=== PATIENT | female | born 1950 | race Caucasian/White ===

== ENCOUNTER 2018-12-05 19:26 | Emergency (ER) | payer MEDICARE, OTHER, SELFPAY ==
[2018-12-05 19:27] VITALS: BP 190/90; PULSE 77; RESP 17; TEMP 36.4; O2SAT 98; BMI 23.7
--- NOTE | 2018-12-05 19:43 | EKG12_ITS ---
Test Reason : LEFT SHOULDER PAIN Blood Pressure : / mmHG Vent. Rate : 075 BPM Atrial Rate : 075 BPM P-R Int : 158 ms QRS Dur : 102 ms QT Int : 424 ms P-R-T Axes : 078 -08 042 degrees QTc Int : 473 ms Normal sinus rhythm Inferior infarct , age undetermined Abnormal ECG Confirmed by GA GENAO, ALYX ([id number]), editorial cartoonist DESTINY GOLDSTEIN ([id number]) on 12/07/2018 3:46:03 PM Referred By: AME LYA Confirmed By:ALYX KOROMA MD
[2018-12-05] MEDS: Aspirin 81 MG TAB.CHEW 324 MG PO (20:00)
--- NOTE | 2018-12-05 20:00 | RAD_ITS ---
STUDY: X-RAY CHEST REASON FOR EXAM: Female, 67 years old. Left shoulder pain radiating into back and flank. TECHNIQUE: Single AP portable view of the chest. COMPARISON: None. FINDINGS: The lungs are clear and expanded. There is no demonstrated pleural abnormality. Normal size heart. There is evidence of retrocardiac hiatal hernia. Otherwise normal mediastinum and michaela. Normal visualized pulmonary arteries. There is atherosclerotic calcification of the aortic arch with tortuosity. Normal visualized thoracic spine. Normal visualized ribs, clavicles, and shoulders. There is no demonstrated abnormality of the visualized soft tissue structures of the upper abdomen. RAD/Chest 1 View (Portable) IMPRESSION: 1. Retrocardiac hiatal hernia. 2. No acute cardiopulmonary disease. Electronically Signed: Suresh Costello DO at 20:28 EST Tel [phone], Service support ,
[2018-12-05 20:29] LABS: D-Dimer Quantitative (DVT/PE) 1.16 FEU/ug/m (0.27-0.49)
[2018-12-05 20:32] LABS: Basophil# 0.05 X10^3/uL; Mean Corpuscular Hgb 30.6 pg (27.0-32.0); RBC Distribution Width CV 12.8 % (11.6-14.6)
[2018-12-05 20:34] LABS: Anion Gap 6 (5-15); BUN 21 mg/dL (7-18); BUN/Creat Ratio 19.8 RATIO (10-20); Calcium,Total 9.1 mg/dL (8.5-10.1); Chloride 107 mmol/L (98-107); Creatinine, Serum 1.06 mg/dL (0.55-1.02); EST Glomerular Filtration Rate 55 mL/min (>60); Est Glom Filt Rate - Afr Amer 67 mL/min (>60); Estimated Creatinine Clearance 43.77 ml/min; Glucose 107 mg/dL (74-106); Sodium Level 141 mmol/L (136-145)
--- NOTE | 2018-12-05 20:40 | ED.RN ---
LAB CALLS WITH CRITICAL RESULT, D-DIMER 1.16, DR. MCCLOUD MADE AWARE.
[2018-12-05 20:42] LABS: Hematocrit 41.1 % (37-47); Hemoglobin 13.6 g/dl (12.0-15.0); Mean Corp Hgb Conc 33.1 g/gl (32-36); Mean Corpuscular Volume 92.6 fL (81-99); Mean Platelet Vol. 10.6 fl (6.2-12.0); POSITIVE COUNT NO; POSITIVE DIFFERENTIAL NO; POSITIVE MORPHOLOGY NO; Platelet Count 237 K/mm3 (150-450); RBC Distribution Width SD 42.9 fl (35.1-43.9); Red Blood Count 4.44 M/mm3 (4.2-5.4); White Blood Count 5.5 K/mm3 (4.4-11.0)
[2018-12-05 20:43] LABS: Absolute Lymphocyte Count 1.41 X10^3/ul (0.83-4.51); Basophil% 0.9 % (0-1); Eosinophil# 0.26 X10^3/uL; Eosinophils% 4.7 % (0-5); Lymphocyte # 1.41 X10^3/ul (4.0); Lymphocyte % 25.5 % (19-41); Monocyte% 14.5 % (0-10); Neutrophil # 3.01 X10^3/uL (2.7-7.7); Neutrophil % 54.4 % (47-70)
[2018-12-05 20:44] VITALS: BP 164/90; PULSE 66
--- NOTE | 2018-12-05 20:56 | CT_ITS ---
STUDY: CTA CHEST REASON FOR EXAM: Female, 67 years old. Pain left shoulder, [place] with heart stents RADIATION DOSAGE (If Supplied By Facility): CTDIvol = ( 5.50 ) mGy, DLP = ( 243.46 ) mGycm TECHNIQUE: The examination was performed with the intravenous administration of 75ML ml of Isovue 370 contrast material. Post-processing of the angiographic images was performed, with multiplanar reformation and 3D reconstruction. Individualized dose optimization techniques were used for this CT. COMPARISON: Chest x-ray from today FINDINGS: Normal enhancement of the main pulmonary artery and right and left pulmonary arteries. Normal enhancement of the bilateral peripheral pulmonary arteries. There is no demonstrated pulmonary embolism. Normal thoracic aorta and visualized great vessels. There is no demonstrated aortic dissection. Normal heart and pericardium. Calcific coronary artery disease. Normal mediastinum. Normal hilar regions. Normal visualized trachea and bronchi. The lungs are well expanded. Normal pulmonary parenchyma. Normal pleura. Normal chest wall structures. Normal osseous structures. Large hiatal hernia. CT/CTA Chest W/WO Contrast IMPRESSION: Large hiatal hernia. Coronary artery disease. Electronically Signed: Villa Benoit MD at 21:55 EST , Service support ,
[2018-12-05] MEDS: 0.9% Normal Saline 1,000 ML 150 ML IV (20:58)
[2018-12-05 21:26] VITALS: BP 155/79; PULSE 74; RESP 13; O2SAT 97
--- NOTE | 2018-12-05 22:39 | ED.VISSUMM ---
- ER Visit Summary Date of Service: 12/05/18 Chief Complaint: Left shoulder pain [] History of Present Illness: The patient is a 67 F [presents the emergency department complaint of pain over her left scapula. Patient has had discomfort there since yesterday. Patient states the pain is dull and achy. She denies any trauma. She was concerned that it could be heart related given her cardiac history. Patient however states that the pain is actually improved with activity. Patient states that if she lies on her left arm and the left side of her back the pain goes away and she is able to sleep all night. She states that when she flexes her neck she feels a pulling in her left scapula area. Patient denies any exertional dyspnea. She denies any diaphoresis. She denies any anterior chest pain. Patient denies nausea or vomiting. Patient does have a history of cardiac stents x2. Patient has a abdominal aortic aneurysm that is being monitored and is at 4.3 cm currently. Patient just recently had an evaluation for this. Patient does have a history of hypertension, high cholesterol, and coronary artery disease.] Patient denies recent travel or surgery. Physical Examination: [HEENT-PERRLA, EOMI. Cranial nerves II through XII grossly intact. TMs clear. Mucous membranes moist. No adenopathy. Cardiovascular-regular rate and rhythm without murmur or ectopy Lungs-clear to auscultation, chest wall stable without crepitus or subcu emphysema Abdomen-normoactive bowel sounds, soft, nontender, no rebound or rigidity, no peritoneal signs. Back exam-I am unable to reproduce patient's pain with palpation of the back. There is no erythema or warmth noted to her back. No bony tenderness. Extremities-intact ?4, normal range of motion, normal pulses, atraumatic] Test Results: EKG obtained arrival shows sinus rhythm with a ventricular rate of 75 bpm with old inferior infarct noted. When compared with prior EKG from 2014 no new changes noted. CBC with differential obtained showed a white blood cell count of 5.5, hemoglobin 13.6, hematocrit 41, platelets 237. Chemistries unremarkable. Troponin less than 0.015. D-dimer was elevated 1.16. Chest x-ray showed a hiatal hernia otherwise nothing acute. CTA of the chest obtained showed no evidence for PE or dissection. Patient had a large hiatal hernia and evidence of coronary artery disease. Emergency Department Course and Treatment: [Initially patient was given aspirin and sublingual nitro which did not improve her pain at all.] Treatment Plan: [Had a long discussion with patient that I felt her pain was atypical to be cardiac based on her description and history. She understands that I cannot completely rule out cardiac etiology although my suspicion is low. We discussed admission for stress testing versus outpatient follow-up and she would prefer to follow-up which I feel is reasonable at this time.] Disposition: [Discharged home in stable condition. Patient advised to return if chest pain, shortness of breath, exertional dyspnea, or condition should worsen anyway.] Impression: [Back pain-etiology uncertain] This note was generated with [employer] dictation software. It may contain incorrect words, spelling, and punctuation that were not noted in review of the chart prior to signing ED Disposition - Plan for ED Patient: Chief Complaint: Upper Extremity Injury Referrals: Fabrizio Callahan MD [Primary Care Provider] -
--- NOTE | 2018-12-05 22:43 | ED.DCSUM_ITS ---
- ER Visit Summary Date of Service: 12/05/18 Chief Complaint: Left shoulder pain [] History of Present Illness: The patient is a 67 F [presents the emergency department complaint of pain over her left scapula. Patient has had discomfort there since yesterday. Patient states the pain is dull and achy. She denies any trauma. She was concerned that it could be heart related given her cardiac history. Patient however states that the pain is actually improved with activity. Patient states that if she lies on her left arm and the left side of her back the pain goes away and she is able to sleep all night. She states that when she flexes her neck she feels a pulling in her left scapula area. Patient denies any exertional dyspnea. She denies any diaphoresis. She denies any anterior chest pain. Patient denies nausea or vomiting. Patient does have a history of cardiac stents x2. Patient has a abdominal aortic aneurysm that is being monitored and is at 4.3 cm currently. Patient just recently had an evaluation for this. Patient does have a history of hypertension, high cholesterol, and coronary artery disease.] Patient denies recent travel or surgery. Physical Examination: [HEENT-PERRLA, EOMI. Cranial nerves II through XII grossly intact. TMs clear. Mucous membranes moist. No adenopathy. Cardiovascular-regular rate and rhythm without murmur or ectopy Lungs-clear to auscultation, chest wall stable without crepitus or subcu emphysema Abdomen-normoactive bowel sounds, soft, nontender, no rebound or rigidity, no peritoneal signs. Back exam-I am unable to reproduce patient's pain with palpation of the back. There is no erythema or warmth noted to her back. No bony tenderness. Extremities-intact ?4, normal range of motion, normal pulses, atraumatic] Test Results: EKG obtained arrival shows sinus rhythm with a ventricular rate of 75 bpm with old inferior infarct noted. When compared with prior EKG from 2014 no new changes noted. CBC with differential obtained showed a white blood cell count of 5.5, hemoglobin 13.6, hematocrit 41, platelets 237. Chemistries unremarkable. Troponin less than 0.015. D-dimer was elevated 1.16. Chest x- ray showed a hiatal hernia otherwise nothing acute. CTA of the chest obtained showed no evidence for PE or dissection. Patient had a large hiatal hernia and evidence of coronary artery disease. Emergency Department Course and Treatment: [Initially patient was given aspirin and sublingual nitro which did not improve her pain at all.] Treatment Plan: [Had a long discussion with patient that I felt her pain was at ypical to be cardiac based on her description and history. She understands that I cannot completely rule out cardiac etiology although my suspicion is low. We discussed admission for stress testing versus outpatient follow-up and she would prefer to follow-up which I feel is reasonable at this time.] Disposition: [Discharged home in stable condition. Patient advised to return if chest pain, shortness of breath, exertional dyspnea, or condition should worsen anyway.] Impression: [Back pain-etiology uncertain] This note was generated with [employer] dictation software. It may contain incorrect words, spelling, and punctuation that were not noted in review of the chart prior to signing ED Disposition - Plan for ED Patient: Chief Complaint: Upper Extremity Injury Referrals: Fabrizio Callahan MD [Primary Care Provider] -
--- NOTE | 2018-12-05 22:44 | DCINST.ED_ITS ---
ED Disposition - Plan for ED Patient: Chief Complaint: Upper Extremity Injury Instructions: ED Spasm Back No Trauma, ED Neck Back Pain General Prescriptions: Hydrocodone Bitart/Apap 5-325 [[place] 5MG-325MG] 1 tab PO Q4H PRN PRN 2 Days #10 tab PRN Reason: Pain Referrals: Fabrizio Callahan MD [Primary Care Provider] - 3-5 Days
[2018-12-05 22:53] VITALS: BP 147/88; PULSE 69; RESP 16; O2SAT 97
== END 2018-12-05 23:02 | disposition home or self-care (01) ==
LOC: ED 19:52
PROVIDERS: Emergency Provider Emergency Medicine; Family Provider Family Medicine; PCP Family Medicine
DX: M54.9 Dorsalgia, unspecified (principal); K44.9 Diaphragmatic hernia without obstruction or gangrene; I25.10 Atherosclerotic heart disease of native coronary artery without angina pectoris; I10 Essential (primary) hypertension; E78.00 Pure hypercholesterolemia, unspecified; I71.4 Abdominal aortic aneurysm, without rupture
CPT/HCPCS: 71045; 71275; 80048; 84484; 85025; 85379; 93005; 96360; 96361; 99285; J7030; Q9967; A4216

== ENCOUNTER 2018-12-28 17:13 | Inpatient (IN) | payer MEDICARE, OTHER, SELFPAY ==
[2018-12-28] VITALS (7 sets, daily range): BP systolic 158–165; BP diastolic 82–90; PULSE 68–80; RESP 14–18; TEMP 36.6–36.7; O2SAT 97–99; BMI 23.7; BMI 22.8
--- NOTE | 2018-12-28 17:17 | EKG12_ITS ---
Test Reason : PALPATIONS Blood Pressure : / mmHG Vent. Rate : 075 BPM Atrial Rate : 075 BPM P-R Int : 152 ms QRS Dur : 102 ms QT Int : 412 ms P-R-T Axes : 073 -10 046 degrees QTc Int : 460 ms Normal sinus rhythm Inferior-posterior infarct , age undetermined Abnormal ECG Confirmed by SEAN GENAO, VIOLA ([id number]), supervising editor trailer DESTINY GOLDSTEIN ([id number]) on 01/01/2019 11:14:23 AM Referred By: Confirmed By:VIOLA ESTRADA MD
--- NOTE | 2018-12-28 17:20 | RAD_ITS ---
STUDY: X-RAY CHEST REASON FOR EXAM: Female, 68 years old. Chest pain TECHNIQUE: 1 view COMPARISON: Prior chest radiograph of December 05, 2018 FINDINGS: The lungs are clear and expanded. There is no demonstrated pleural abnormality. Normal size heart. Air-containing hiatal hernia. Normal visualized pulmonary arteries. There is atherosclerotic calcification of the aortic arch with tortuosity. Normal visualized thoracic spine. Normal visualized ribs, clavicles, and shoulders. There is no demonstrated abnormality of the visualized soft tissue structures of the upper abdomen. RAD/Chest 1 View (Portable) IMPRESSION: No acute cardiopulmonary findings or changes. Negative for major consolidation, focal atelectasis, cardiomegaly or substantial pleural effusion. Hiatal hernia. Electronically Signed: Heather Pratt MD at 18:28 EST , Service support ,
[2018-12-28 17:52] LABS: Absolute Lymphocyte Count 1.07 X10^3/ul (0.83-4.51); Absolute Neutrophil Count 3.3 X10^3/uL (2.0-7.7); Basophil# 0.06 X10^3/uL; Basophil% 1.1 % (0-1); Eosinophil# 0.19 X10^3/uL; Eosinophils% 3.6 % (0-5); Hematocrit 40.7 % (37-47); Hemoglobin 13.3 g/dl (12.0-15.0); Lymphocyte # 1.07 X10^3/ul (4.0); Lymphocyte % 20.3 % (19-41); Mean Corp Hgb Conc 32.7 g/gl (32-36); Mean Corpuscular Hgb 30.4 pg (27.0-32.0); Mean Corpuscular Volume 92.9 fL (81-99); Mean Platelet Vol. 9.5 fl (6.2-12.0); Monocyte# 0.68 X10^3/uL; Monocyte% 12.9 % (0-10); Neutrophil # 3.26 X10^3/uL (2.7-7.7); Neutrophil % 62.1 % (47-70); Platelet Count 204 K/mm3 (150-450); RBC Distribution Width CV 12.5 % (11.6-14.6); RBC Distribution Width SD 41.4 fl (35.1-43.9); Red Blood Count 4.38 M/mm3 (4.2-5.4); White Blood Count 5.3 K/mm3 (4.4-11.0)
[2018-12-28 17:54] LABS: POSITIVE COUNT NO; POSITIVE DIFFERENTIAL NO; POSITIVE MORPHOLOGY NO
--- NOTE | 2018-12-28 18:19 | ED.VISSUMM ---
- ER Visit Summary Date of Service: 12/28/18 Chief Complaint: Palpitations History of Present Illness: The patient is a 68 F reports sent by contract implementation analyst office Dr. Larose for abnormal Holter monitor today. Reports been having palpitations on and off since her NE in 2007 has had 2 stents then. Patient on verapamil 120 mg daily for hypertension. No cardiac dysrhythmia history. Saw cardiology yesterday in the office is a 48-hour Holter monitor. States around noon today noted 10 seconds of palpitations. No lightheaded symptoms. Call cardiology office, reported to go to the ED with abnormal findings. I did discuss with nursing who called prior to patient arrival. Patient denies any symptoms since. Physical Examination: General: Alert and oriented ?3, no acute distress HEENT: Normocephalic, atraumatic. Moist mucosa membranes Neck: supple, nontender. Cardiovascular: Regular rate and rhythm, no murmurs Respiratory: Normal breath sounds, symmetric, no distress Abdomen: Soft, nontender, nondistended Extremities: Nontender, no edema, pulses intact ?4 Neuro: no focal neurological deficits. Test Results: EKG sinus rate of [address] changes. T wave inversion in leads III. Electrolytes troponin negative. Chest x-ray negative. Emergency Department Course and Treatment: Evaluation of faxed in records from cardiology office with Holter monitor noted nonsustained V. tach at 11:36 lasting less than 4 seconds. Labs stable EKG stable except T wave inversion leads III. I spoke with Dr. Larose her contract implementation analyst reports in the office she had T wave inversions in the lateral leads on EKG today. She did not have any exertional angina symptoms therefore they elected with a Holter monitor. States now with a nonsustained V. tach he states stress test would not be the best option and would like her to be catheterized. I spoke with covering contract implementation analyst Dr. Quiles, updated on findings and presentation he states he will consult and see the patient prior to making decisions. Discussed with hospitalist Dr. Guido who agrees to admit to PCU for further management. Treatment Plan: [] Disposition: Admission Impression: 1. Nonsustained V. tach 2. Palpitations This note was generated with [employer] dictation software. It may contain incorrect words, spelling, and punctuation that were not noted in review of the chart prior to signing ED Disposition - Plan for ED Patient: Disposition: Acute Care Hospital [facility] Diagnosis: Nonsustained ventricular tachycardia, Palpitations Referrals: Fabrizio Callahan MD [Primary Care Provider] -
[2018-12-28 18:24] LABS: Anion Gap 6 (5-15); BUN 17 mg/dL (7-18); Calcium,Total 9.4 mg/dL (8.5-10.1); Chloride 107 mmol/L (98-107); Creatinine, Serum 0.94 mg/dL (0.55-1.02); EST Glomerular Filtration Rate 63 mL/min (>60); Est Glom Filt Rate - Afr Amer 76 mL/min (>60); Glucose 99 mg/dL (74-106); Potassium 4.4 mmol/L (3.5-5.1); Sodium Level 141 mmol/L (136-145)
--- NOTE | 2018-12-28 19:27 | PCM.HP.STD ---
Problem List (1) Nonsustained ventricular tachycardia Status: Acute (2) Palpitations Status: Chronic History of Present Illness Date of Admission: 12/28/18 Chief Complaint: palpitations The patient is a 68 year old F with a significant history of hypertension, Abdominal Aortic Aneurysm; MS status post stents; and hyperlipidemia who presented with persistent palpitations that started about 4 days ago. Associated with her symptoms is lightheadedness. After her MS in 2007 patient's had chronic palpitations and lightheadedness. However in the last 4 days the above symptoms has worsened. She went to her cattle producers, Dr. Yun, a day before this presentation and she was given an event monitor. On the day of admission she had palpitations and the event monitor captured 4 seconds of nonsustained V. tach. Her cattle producers office sent patient to the ED for for further evaluation. Emergency department doctor discussed the case with Dr. Yun who recommended heart cath. Emergency department doctor discussed the case with Dr. Quiles, [employer] who will see the patient in the AM. Her event monitor was scheduled to come off a day after this admission. Patient denies any chest pain or shortness of breath. At the outpatient cattle producers office, a day before her admission, EKG showed T wave inversion in the lateral leads. However at emergency department on the day of presentation her EKG showed T wave inversion in leads III. Past Medical History Past Medical History (Chronic Problems): Chronic Problems (Last Updated 12/28/18 @ 20:09 by Joseph Guido MD) Palpitations (Chronic) Medical History: Medical History (Last Updated 12/28/18 @ 20:09 by Joseph Guido MD) Coronary artery disease I25.10 Hyperlipidemia E78.5 Allergies erythromycin base [From Staticin] Allergy (Verified 12/28/18 17:16) Other ethyl alcohol [From Staticin] Allergy (Verified 12/28/18 17:16) Other Sulfa (Sulfonamide Antibiotics) Allergy (Verified 12/28/18 17:16) Other Home Medications: Ambulatory Orders Medication Instructions Recorded Aspirin [Aspirin, Baby] 81 mg PO DAILY 02/26/14 Rosuvastatin Calcium [Crestor] 10 mg PO QHS 02/26/14 Verapamil HCl [Verapamil ER] 120 mg PO DAILY 02/26/14 [place]-3 Fatty Acids/Fish Oil [Fish 1 each PO DAILY 12/28/18 Oil 1,000 mg Capsule] Surgical History: - - Coronary stents Lives: Spouse/ Significant Other Smoking Status: Never smoker Alcohol: None - *Family History Maternal History Items: Diabetes, Heart Disease Paternal History Items: - - Aortic Aneursym Review of Systems Constitutional: Denies: Chills, Fever, Weight Change HEENT: Denies: Head Aches, Sinus Congestion, Sinus Drainage Cardiovascular: Reports: Light Headedness, Palpitations. Denies: Chest Pain Respiratory: Denies: Cough, Shortness of breath at rest, Sputum production Gastrointestinal: Denies: Abdominal Pain, Nausea, Vomiting Genitourinary: Denies: Dysuria Musculoskeletal: Denies: Joint Pain, Joint Tenderness Skin: Denies: Rash, Wounds Neurological: Denies: Numbness, Tingling, Focal weakness Psychiatric: Denies: Anxiety, Depression, Homicidal Ideations, Suicidal Ideations Hematologic/ Lymphatic: Denies: Easy Bruising, Easy Bleeding VTE Information - Inpt Only VTE Present on Admission: No VTE Mechan Device Prophylaxis: None VTE Pharm Prophylaxis ordered?: Yes Patient Problems: Active and Suspected Problems (Last Updated 12/28/18 @ 20:09 by Joseph Guido MD) Nonsustained ventricular tachycardia (Acute) - Physical Exam General: Alert, Oriented x3, Cooperative HEENT: Atraumatic, PERRLA, EOMI, Normocephalic Neck: Supple, No JVD, Negative Carotid Bruits Lungs: Clear to auscultation, Normal air movement Cardiovascular: Regular rate, No murmurs Abdomen: Bowel Sounds Present, Soft, Non Tender Extremities: No edema, Capillary Refill Less than 3 Seconds Skin: No rashes, No breakdown Musculoskeletal: No Tenderness to Palpation of Joints or Extremities Neurological: Neuro grossly intact Psych/Mental Status: Normal Affect, Appropriate Vital Signs Temp Pulse Resp BP Pulse Ox 98 F 72 18 165/82 H 99 12/28/18 17:13 12/28/18 18:04 12/28/18 18:04 12/28/18 18:04 12/28/18 18:04 Oxygen Delivery Method Room Air Weight: 60.781 kg Body Mass Index (BMI) 23.7 Laboratory Tests Past 24 Hrs 12/28/18 12/28/18 17:30 17:30 WBC 5.3 RBC 4.38 Hgb 13.3 Hct 40.7 MCV 92.9 MCH 30.4 MCHC 32.7 RDW 12.5 RDW Differential 41.4 Plt Count 204 MPV 9.5 Immature Gran % (Auto) 0.000 Neut % (Auto) 62.1 Lymph % (Auto) 20.3 [place] % (Auto) 12.9 H Eos % (Auto) 3.6 Baso % (Auto) 1.1 H Absolute Neuts (auto) 3.3 Absolute Lymphs (auto) 1.07 Total Counted Not Reportable Sodium 141 Potassium 4.4 Chloride 107 Carbon Dioxide 28.0 Anion Gap 6 BUN 17 Creatinine 0.94 Estim Creat Clear Calc 48.70 Est GFR (MDRD) Af Amer 76 Est GFR (MDRD) Non-Af 63 BUN/Creatinine Ratio 18.0 Glucose 99 Calcium 9.4 Troponin I < 0.015 Assessment/Plan All Active Problems (Last Updated 12/28/18 @ 20:09 by Joseph Guido MD) Nonsustained ventricular tachycardia (Acute) The patient is a 68 year old F with a significant history of hypertension, Abdominal Aortic Aneurysm; MS status post stents; and hyperlipidemia who developed palpitations after MS in 2007, now with persistent unbearable palpitations and found to have nonsustained V. tach captured on an event monitor. Dysrhythmia Patient with unbearable palpitations and nonsustained V. tach captured on event monitor. Continue home verapamil. As needed labetalol for systolic blood pressure more than 160 that could also help with dysrhythmia. Independent review of EKG showed T wave inversion in leads III. Independent review of event monitor shows that on the day of admission patient had a nonsustained V. tach at 11:38 AM. Review of labs showed normal electrolytes. Will order magnesium level. Trend cardiac enzymes. Cardiology consult. Will keep npo pending cardiology seeing patient. PT/INR ordered. Hypertension On presentation his blood pressure was not within goal. Continue verapamil Trend blood pressures and adjust blood pressure medications PRN labetalol. Hyperlipidemia Statin continued Abdominal aortic aneurysm Continue outpatient longitudinal follow-up. DVT prophylaxis: Subcutaneous heparin. Code Visit OBSV E&M: [id number] Initial observation care L3
[2018-12-29] VITALS (11 sets, daily range): BP systolic 133–149; BP diastolic 79–85; PULSE 66–96; RESP 14–18; TEMP 36.6–37; O2SAT 93–98
[2018-12-29 04:30] LABS: Bacteria 0 SEEN /hpf (None Seen); Mucous, Urine 0 SEEN /hpf (<or=2+); Red Blood Cells-Urine 0 SEEN /hpf (0-5); White Blood Cells 0 SEEN /hpf (0-5)
[2018-12-29 05:34] LABS: Color, Urine Straw (Yellow); Glucose, Dipstick Normal (Normal); Ketone-Dipstick Negative (Negative); Leukocyte Esterase-Dipstick Negative /ul (Negative); Nitrite-Dipstick Negative (Negative); Occult Blood-Urine 25 /ul (Negative); Protein-Dipstick Negative (Negative); Urine Bilirubin Dipstick Negative (Negative); Urine Clarity Clear (Clear); Urine Urobilinogen Normal (Normal)
[2018-12-29 05:41] LABS: Squamous Epithelial Cells - UA 0-5 SEEN /hpf (5-10)
--- NOTE | 2018-12-29 05:55 | EKG12_ITS ---
Test Reason : AM Blood Pressure : / mmHG Vent. Rate : 067 BPM Atrial Rate : 067 BPM P-R Int : 164 ms QRS Dur : 100 ms QT Int : 424 ms P-R-T Axes : 071 -07 074 degrees QTc Int : 448 ms Normal sinus rhythm Inferior-posterior infarct , age undetermined Abnormal ECG When compared with ECG of 28-DEC-2018 17:07, MANUAL COMPARISON REQUIRED, DATA IS UNCONFIRMED Confirmed by SEAN GENAO, VIOLA ([id number]), desk editor DESTINY GOLDSTEIN ([id number]) on 01/04/2019 11:49:01 AM Referred By: BRIAN Confirmed By:VIOLA ESTRADA MD
[2018-12-29 06:54] LABS: Absolute Lymphocyte Count 1.18 X10^3/ul (0.83-4.51); Basophil# 0.08 X10^3/uL; Basophil% 1.6 % (0-1); Hematocrit 39.8 % (37-47); Hemoglobin 13.3 g/dl (12.0-15.0); Lymphocyte # 1.18 X10^3/ul (4.0); Lymphocyte % 23.3 % (19-41); Mean Corp Hgb Conc 33.4 g/gl (32-36); Mean Corpuscular Hgb 30.9 pg (27.0-32.0); Mean Corpuscular Volume 92.3 fL (81-99); Mean Platelet Vol. 9.6 fl (6.2-12.0); Monocyte# 0.63 X10^3/uL; Monocyte% 12.5 % (0-10); Neutrophil # 2.96 X10^3/uL (2.7-7.7); Neutrophil % 58.4 % (47-70); Platelet Count 191 K/mm3 (150-450); RBC Distribution Width CV 12.5 % (11.6-14.6); RBC Distribution Width SD 40.9 fl (35.1-43.9); Red Blood Count 4.31 M/mm3 (4.2-5.4); White Blood Count 5.1 K/mm3 (4.4-11.0)
[2018-12-29 06:57] LABS: International Normalized Ratio 1.1; Partial Thromboplast Time 29.5 Seconds (24.1-36.2); Prothrombin Time (Protime)PT. 13.7 SECONDS (11.7-14.9)
[2018-12-29 07:04] LABS: POSITIVE COUNT NO; POSITIVE DIFFERENTIAL NO; POSITIVE MORPHOLOGY NO
[2018-12-29 07:09] LABS: Anion Gap 10 (5-15); BUN 14 mg/dL (7-18); BUN/Creat Ratio 15.5 RATIO (10-20); Calcium,Total 8.9 mg/dL (8.5-10.1); Chloride 108 mmol/L (98-107); EST Glomerular Filtration Rate 66 mL/min (>60); Est Glom Filt Rate - Afr Amer 80 mL/min (>60); Estimated Creatinine Clearance 50.86 ml/min; Glucose 88 mg/dL (74-106); Sodium Level 144 mmol/L (136-145)
[2018-12-29] MEDS: Aspirin 81 MG TAB.CHEW PO (08:51)
[2018-12-29] MEDS: Omega-3 Acid Ethyl Esters 1 GM Capsule PO (08:52)
--- NOTE | 2018-12-29 11:06 | PCM.CONS.C ---
Problem List (1) Nonsustained ventricular tachycardia Status: Acute Reason for Consult Date of Consultation: 12/29/18 History of Present Illness: The patient is a 68 year old F with past medical history significant for hypertension, coronary artery disease status post [place] in 2007, abdominal aortic aneurysm and dyslipidemia. She was referred to the emergency room by her game room attendant Dr. Yun. According to the patient, since her [place] in 2007 she has been having some palpitations. However for the last 1 week they have been more frequent. She feels dizzy with them and lightheaded. No history of syncope. No presyncope. Denies any associated chest pain or pressure. No arm neck or jaw tightness. No associated shortness of breath. According to the patient, she has these symptoms about 2 times a day. Relieved on its own. Patient has had an event monitor prescribed by Dr. Yun. Yesterday it Showed 2 runs of nonsustained ventricular tachycardia. Subsequently she was sent to the hospital. Next According to the patient, she had chest pain with her myocardial infarction in 2007. She denies any recurrence of those symptoms since. [] Past Medical History Allergies/Adverse Reactions: Allergies erythromycin base [From Staticin] Allergy (Verified 12/28/18 17:16) Other ethyl alcohol [From Staticin] Allergy (Verified 12/28/18 17:16) Other Sulfa (Sulfonamide Antibiotics) Allergy (Verified 12/28/18 17:16) Other Home Medications: Ambulatory Orders Medication Instructions Recorded Aspirin [Aspirin, Baby] 81 mg PO DAILY 02/26/14 Rosuvastatin Calcium [Crestor] 10 mg PO QHS 02/26/14 Verapamil HCl [Verapamil ER] 120 mg PO DINNER 02/26/14 [place]-3 Fatty Acids/Fish Oil [Fish 1 each PO DAILY 12/28/18 Oil 1,000 mg Capsule] Past Medical History (Chronic Problems): Chronic Problems (Last Updated 12/28/18 @ 20:09 by Joseph Guido MD) Palpitations (Chronic) Surgical History: - - Coronary stents - *Family History Maternal History Items: Diabetes, Heart Disease Paternal History Items: - - Aortic Aneursym Lives: Spouse/ Significant Other Smoking Status: Never smoker Alcohol: None Review of Systems - Review of Systems General: Denies: Fever, Chills HEENT: Denies: Head Aches Cardiovascular: Reports: Palpitations, Lightheadedness, Dizziness. Denies: Chest Discomfort, Chest Discomfort at Rest, Chest Discomfort with Exertion, Chest Pressure, Chest Tightness, Chest Heaviness, Shortness of Breath, Shortness of Breath at Rest, Shortness of Breath with Exertion, Orthopnea, PND, Peripheral Edema, Near Syncope, Syncope Respiratory: Denies: Cough, Hemoptysis Gastrointestinal: Denies: Abdominal Discomfort, Jaundice, Nausea Neurological: Denies: History of TIA, History of CVA Hematologic/ Lymphatic: Denies: Easy Brusing, Easy Bleeding Subjectve: Comfortable. No apparent distress. Objective: Vital Signs Temp Pulse Resp BP Pulse Ox 98.6 F 66 14 133/85 H 98 12/29/18 08:50 12/29/18 08:50 12/29/18 08:50 12/29/18 08:50 12/29/18 08:50 Oxygen Delivery Method Room Air Weight: 59.6 kg Body Mass Index (BMI) 22.8 Intake and Output for Last 24 Hours 12/27/18 12/28/18 12/29/18 23:59 23:59 23:59 Intake Total 375 / 375 Balance 375 / 375 General: Healthy Appearing, Awake, Alert, Oriented x 3 HEENT: Atraumatic, Normocephalic Oral: Moist Mucosa Neck: Supple Lungs: Clear to auscultation Cardiovascular: Regular Rhythm, Normal S1, Normal S2 Abdomen: Bowel Sounds Present, Soft Extremities: No edema Neurological: No Focal Motor or Sensory Deficit Psych/Mental Status: Appropriate 12/28/18 17:30: WBC 5.3, RBC 4.38, Hgb 13.3, Hct 40.7, MCV 92.9, MCH 30.4, MCHC 32.7, RDW 12.5, RDW Differential 41.4, Plt Count 204, MPV 9.5, Immature Gran % (Auto) 0.000, Neut % (Auto) 62.1, Lymph % (Auto) 20.3, [place] % (Auto) 12.9 H, Eos % (Auto) 3.6, Baso % (Auto) 1.1 H, Absolute Neuts (auto) 3.3, Total Counted Not Reportable 12/28/18 17:30: Sodium 141, Potassium 4.4, Chloride 107, Carbon Dioxide 28.0, Anion Gap 6, BUN 17, Creatinine 0.94, Est GFR (MDRD) Af Amer 76, Est GFR (MDRD) Non-Af 63, BUN/Creatinine Ratio 18.0, Glucose 99, Calcium 9.4, Troponin I < 0.015 12/28/18 17:30: Magnesium 2.0 12/28/18 20:44: Troponin I < 0.015 12/28/18 23:10: Troponin I < 0.015 12/29/18 03:10: Urine Color Straw, Urine Clarity Clear, Urine pH 7.0, Ur Specific [place] 1.010, Urine Protein Negative, Urine Glucose (UA) Normal, Urine Ketones Negative, Urine Occult Blood 25 H, Urine Nitrite Negative, Urine Bilirubin Negative, Urine Urobilinogen Normal, Ur Leukocyte Esterase Negative, Urine RBC 0 SEEN, Urine WBC 0 SEEN 12/29/18 06:20: PT 13.7, INR 1.1, APTT 29.5 12/29/18 06:20: WBC 5.1, RBC 4.31, Hgb 13.3, Hct 39.8, MCV 92.3, MCH 30.9, MCHC 33.4, RDW 12.5, RDW Differential 40.9, Plt Count 191, MPV 9.6, Immature Gran % (Auto) 0.200, Neut % (Auto) 58.4, Lymph % (Auto) 23.3, [place] % (Auto) 12.5 H, Eos % (Auto) 4.0, Baso % (Auto) 1.6 H, Absolute Neuts (auto) 3.0, Total Counted Not Reportable 12/29/18 06:20: Sodium 144, Potassium 4.0, Chloride 108 H, Carbon Dioxide 26.0, Anion Gap 10, BUN 14, Creatinine 0.90, Est GFR (MDRD) Af Amer 80, Est GFR (MDRD) Non-Af 66, BUN/Creatinine Ratio 15.5, Glucose 88, Calcium 8.9 Rhythm: Sinus rhythm. EKG: Normal sinus rhythm. Old inferior posterior [place]. ECHO: Stress Test: Cardiac Cath: PCI: CT Surgery: Holter monitor: EPS: PPM: CXR: Chest CT Scan: Assessment/Plan 1. Nonsustained ventricular tachycardia. Check 2D echocardiogram with Doppler to assess LV function. Also check Lexiscan stress Cardiolite to rule out reversible ischemia. Discontinue calcium channel blockers. Start on carvedilol. Increase dose as tolerated. 2. History of coronary artery disease with history of myocardial infarction in 2007. See #1 above. Asymptomatic. 3. Hypertension. 4. History of abdominal aortic aneurysm. 5. Dyslipidemia.
--- NOTE | 2018-12-29 11:10 | CON.PCM_ITS ---
Problem List (1) Nonsustained ventricular tachycardia Status: Acute Reason for Consult Date of Consultation: 12/29/18 History of Present Illness: The patient is a 68 year old F with past medical history significant for hypertension, coronary artery disease status post [place] in 2007, abdominal aortic aneurysm and dyslipidemia. She was referred to the emergency room by her associate research scientist Dr. Yun. According to the patient, since her [place] in 2007 she has been having some palpitations. However for the last 1 week they have been more frequent. She feels dizzy with them and lightheaded. No history of syncope. No presyncope. Denies any associated chest pain or pressure. No arm neck or jaw tightness. No associated shortness of breath. According to the patient, she has these symptoms about 2 times a day. Relieved on its own. Patient has had an event monitor prescribed by Dr. Yun. Yesterday it Showed 2 runs of nonsustained ventricular tachycardia. Subsequently she was sent to the hospital. Next According to the patient, she had chest pain with her myocardial infarction in 2007. She denies any recurrence of those symptoms since. [] Past Medical History Allergies/Adverse Reactions: Allergies erythromycin base [From Staticin] Allergy (Verified 12/28/18 17:16) Other ethyl alcohol [From Staticin] Allergy (Verified 12/28/18 17:16) Other Sulfa (Sulfonamide Antibiotics) Allergy (Verified 12/28/18 17:16) Other Home Medications: Ambulatory Orders Medication Instructions Recorded Aspirin [Aspirin, Baby] 81 mg PO DAILY 02/26/14 Rosuvastatin Calcium [Crestor] 10 mg PO QHS 02/26/14 Verapamil HCl [Verapamil ER] 120 mg PO DINNER 02/26/14 [place]-3 Fatty Acids/Fish Oil [Fish 1 each PO DAILY 12/28/18 Oil 1,000 mg Capsule] Past Medical History (Chronic Problems): Chronic Problems (Last Updated 12/28/18 @ 20:09 by Joseph Guido MD) Palpitations (Chronic) Surgical History: - - Coronary stents - *Family History Maternal History Items: Diabetes, Heart Disease Paternal History Items: - - Aortic Aneursym Lives: Spouse/ Significant Other Smoking Status: Never smoker Alcohol: None Review of Systems - Review of Systems General: Denies: Fever, Chills HEENT: Denies: Head Aches Cardiovascular: Reports: Palpitations, Lightheadedness, Dizziness. Denies: Chest Discomfort, Chest Discomfort at Rest, Chest Discomfort with Exertion, Chest Pressure, Chest Tightness, Chest Heaviness, Shortness of Breath, Shortness of Breath at Rest, Shortness of Breath with Exertion, Orthopnea, PND, Peripheral Edema, Near Syncope, Syncope Respiratory: Denies: Cough, Hemoptysis Gastrointestinal: Denies: Abdominal Discomfort, Jaundice, Nausea Neurological: Denies: History of TIA, History of CVA Hematologic/ Lymphatic: Denies: Easy Brusing, Easy Bleeding Subjectve: Comfortable. No apparent distress. Objective: Vital Signs Temp Pulse Resp BP Pulse Ox 98.6 F 66 14 133/85 H 98 12/29/18 08:50 12/29/18 08:50 12/29/18 08:50 12/29/18 08:50 12/29/18 08:50 Oxygen Delivery Method Room Air Weight: 59.6 kg Body Mass Index (BMI) 22.8 Intake and Output for Last 24 Hours 12/27/18 12/28/18 12/29/18 23:59 23:59 23:59 Intake Total 375 / 375 Balance 375 / 375 General: Healthy Appearing, Awake, Alert, Oriented x 3 HEENT: Atraumatic, Normocephalic Oral: Moist Mucosa Neck: Supple Lungs: Clear to auscultation Cardiovascular: Regular Rhythm, Normal S1, Normal S2 Abdomen: Bowel Sounds Present, Soft Extremities: No edema Neurological: No Focal Motor or Sensory Deficit Psych/Mental Status: Appropriate 12/28/18 17:30: WBC 5.3, RBC 4.38, Hgb 13.3, Hct 40.7, MCV 92.9, MCH 30.4, MCHC 32.7, RDW 12.5, RDW Differential 41.4, Plt Count 204, MPV 9.5, Immature Gran % (Auto) 0.000, Neut % (Auto) 62.1, Lymph % (Auto) 20.3, [place] % (Auto) 12.9 H, Eos % (Auto) 3.6, Baso % (Auto) 1.1 H, Absolute Neuts (auto) 3.3, Total Counted Not Reportable 12/28/18 17:30: Sodium 141, Potassium 4.4, Chloride 107, Carbon Dioxide 28.0, Anion Gap 6, BUN 17, Creatinine 0.94, Est GFR (MDRD) Af Amer 76, Est GFR (MDRD) Non-Af 63, BUN/Creatinine Ratio 18.0, Glucose 99, Calcium 9.4, Troponin I < 0.015 12/28/18 17:30: Magnesium 2.0 12/28/18 20:44: Troponin I < 0.015 12/28/18 23:10: Troponin I < 0.015 12/29/18 03:10: Urine Color Straw, Urine Clarity Clear, Urine pH 7.0, Ur Specific [place] 1.010, Urine Protein Negative, Urine Glucose (UA) Normal, Urine Ketones Negative, Urine Occult Blood 25 H, Urine Nitrite Negative, Urine Bilirubin Negative, Urine Urobilinogen Normal, Ur Leukocyte Esterase Negative, Urine RBC 0 SEEN, Urine WBC 0 SEEN 12/29/18 06:20: PT 13.7, INR 1.1, APTT 29.5 12/29/18 06:20: WBC 5.1, RBC 4.31, Hgb 13.3, Hct 39.8, MCV 92.3, MCH 30.9, MCHC 33.4, RDW 12.5, RDW Differential 40.9, Plt Count 191, MPV 9.6, Immature Gran % (Auto) 0.200, Neut % (Auto) 58.4, Lymph % (Auto) 23.3, [place] % (Auto) 12.5 H, Eos % (Auto) 4.0, Baso % (Auto) 1.6 H, Absolute Neuts (auto) 3.0, Total Counted Not Reportable 12/29/18 06:20: Sodium 144, Potassium 4.0, Chloride 108 H, Carbon Dioxide 26.0, Anion Gap 10, BUN 14, Creatinine 0.90, Est GFR (MDRD) Af Amer 80, Est GFR (MDRD) Non-Af 66, BUN/Creatinine Ratio 15.5, Glucose 88, Calcium 8.9 Rhythm: Sinus rhythm. EKG: Normal sinus rhythm. Old inferior posterior [place]. ECHO: Stress Test: Cardiac Cath: PCI: CT Surgery: Holter monitor: EPS: PPM: CXR: Chest CT Scan: Assessment/Plan 1. Nonsustained ventricular tachycardia. Check 2D echocardiogram with Doppler to assess LV function. Also check Lexiscan stress Cardiolite to rule out reversible ischemia. Discontinue calcium channel blockers. Start on carvedilol. Increase dose as tolerated. 2. History of coronary artery disease with history of myocardial infarction in 2007. See #1 above. Asymptomatic. 3. Hypertension. 4. History of abdominal aortic aneurysm. 5. Dyslipidemia.
--- NOTE | 2018-12-29 11:13 | ECHOD_ITS ---
Reason For Study: Arrhythmia Procedure This was a 2D Doppler, Color Flow transthoracic echocardiogram. Exam performed portable in patient room. Left Ventricle Normal LV size. Left ventricular systolic function is lower limits of normal. The estimated ejection fraction is 47 %. Mild segmental systolic dysfunction (see wall motion). Stage 1 diastolic dysfunction. Mid-Posterior: Akinetic. Infero-Basal: Akinetic. Posterior-Basal: Akinetic. Basal inferoseptal: Hypokinetic. The rest of the wall segments are normal. Right Ventricle Normal RV size. Normal systolic function. Atria Normal left atrium. Normal right atrium. Mitral Valve Mild focal mitral valve calcification. There is mild to moderate mitral annular calcification. Mild- Moderate (1-2+) eccentric mitral valve insufficiency. Tricuspid Valve Normal tricuspid valve. Mild (1+) tricuspid valve insufficiency. Aortic Valve Trisinus/trileaflet aortic valve. Mild focal aortic valve calcification. Pulmonic Valve Normal pulmonic valve. Great Vessels Normal aortic root. The pulmonary artery is normal size. Normal inferior vena cava. Pericardium/Pleural No pericardial effusion. MMode/2D Measurements & Calculations LVIDd: 5.0 cm IVSd: 0.92 cm Ao root diam: 3.0 cm LVIDs: 4.6 cm LVPWd: 0.70 cm LA dimension: 3.7 cm RVDd: 2.7 cm FS: 8.2 % LAV(MOD-bp): 59.9 ml EDV(MOD-sp4): 106.9 ml EDV(MOD-sp2): 94.2 ml LAV(MOD-bp) Indexed: 36.9 ml/m2 ESV(MOD-sp4): 56.3 ml EF(MOD-sp2): 43.9 % LAV(MOD-sp2): 49.5 ml EF(MOD-sp4): 47.4 % LAV(MOD-sp4): 64.2 ml SV(MOD-sp4): 50.6 ml SV(MOD-sp2): 41.3 ml LA A4 area: 21.2 cm2 RA A4 area: 16.8 cm2 Doppler Measurements & Calculations MV E max fidel: 82.1 cm/sec Lat Peak E' Fidel: 10.3 cm/sec Med Peak E' Fidel: 4.4 cm/sec MV A max fidel: 98.8 cm/sec E/E' lat: 7.9 E/E' med: 18.7 MV E/A: 0.83 Ao V2 max: 164.4 cm/sec LV V1 max: 111.0 cm/sec PA V2 max: 100.0 cm/sec Ao max P.8 mmHg LV V1 max P.9 mmHg TR max fidel: 222.3 cm/sec TR max P.8 mmHg Interpretation Summary Normal LV size. Left ventricular systolic function is lower limits of normal. The estimated ejection fraction is 47 %. Mild segmental systolic dysfunction (see wall motion). There is mild to moderate mitral annular calcification. Mild-Moderate (1-2+) eccentric mitral valve insufficiency. Stage 1 diastolic dysfunction. Ordering Physician: Lucy Quiles Referring Physician: MD Sindy Fabrizio Performed By: Isamar Ji RDCS
--- NOTE | 2018-12-29 11:23 | PCM.PN.HOSP ---
Patient Problems: Active and Suspected Problems (Last Updated 12/28/18 @ 20:09 by Joseph Guido MD) Nonsustained ventricular tachycardia (Acute) Subjective: No complaints. States that she has been having palpitations but the rhythm yesterday just caused her to feel when it happened. Vitals/I&O's: Vital Signs Temp Pulse Resp BP Pulse Ox 37.0 C 66 14 133/85 H 98 12/29/18 08:50 12/29/18 08:50 12/29/18 08:50 12/29/18 08:50 12/29/18 08:50 Oxygen Delivery Method Room Air Weight: 59.6 kg Body Mass Index (BMI) 22.8 Intake and Output for Last 24 Hours 12/27/18 12/28/18 12/29/18 23:59 23:59 23:59 Intake Total 375 / 375 Balance 375 / 375 General: Alert, No apparent distress HEENT: Atraumatic, Normocephalic Oral: Moist Mucosa, No Gingival or Mucosal Lesions/ Ulcerations Neck: No Nodes, Thyroid Normal Size and Texture Lungs: Clear to auscultation, Normal air movement, No rhonchi, No wheeze Cardiovascular: Regular rate, Regular Rhythm, Normal S1, Normal S2, No murmurs Abdomen: Bowel Sounds Present, Soft, Non Tender, Non-Distended, No Hepato-splenomegaly Extremities: No edema, No Calf Tenderness Skin: No rashes, No breakdown Psych/Mental Status: Normal Affect, Appropriate Laboratory Results 12/28/18 17:30: WBC 5.3, RBC 4.38, Hgb 13.3, Hct 40.7, MCV 92.9, MCH 30.4, MCHC 32.7, RDW 12.5, RDW Differential 41.4, Plt Count 204, MPV 9.5, Immature Gran % (Auto) 0.000, Neut % (Auto) 62.1, Lymph % (Auto) 20.3, [place] % (Auto) 12.9 H, Eos % (Auto) 3.6, Baso % (Auto) 1.1 H, Absolute Neuts (auto) 3.3, Absolute Lymphs (auto) 1.07, Total Counted Not Reportable 12/28/18 17:30: Sodium 141, Potassium 4.4, Chloride 107, Carbon Dioxide 28.0, Anion Gap 6, BUN 17, Creatinine 0.94, Estim Creat Clear Calc 48.70, Est GFR (MDRD) Af Amer 76, Est GFR (MDRD) Non-Af 63, BUN/Creatinine Ratio 18.0, Glucose 99, Calcium 9.4, Troponin I < 0.015 12/28/18 17:30: Magnesium 2.0 12/28/18 20:44: Troponin I < 0.015 12/28/18 23:10: Troponin I < 0.015 12/29/18 03:10: Urine Color Straw, Urine Clarity Clear, Urine pH 7.0, Ur Specific [place] 1.010, Urine Protein Negative, Urine Glucose (UA) Normal, Urine Ketones Negative, Urine Occult Blood 25 H, Urine Nitrite Negative, Urine Bilirubin Negative, Urine Urobilinogen Normal, Ur Leukocyte Esterase Negative, Urine RBC 0 SEEN, Urine WBC 0 SEEN, Ur Squamous Epith Cells 0-5 SEEN, Urine Bacteria 0 SEEN, Urine Mucus 0 SEEN 12/29/18 06:20: PT 13.7, INR 1.1, APTT 29.5 12/29/18 06:20: WBC 5.1, RBC 4.31, Hgb 13.3, Hct 39.8, MCV 92.3, MCH 30.9, MCHC 33.4, RDW 12.5, RDW Differential 40.9, Plt Count 191, MPV 9.6, Immature Gran % (Auto) 0.200, Neut % (Auto) 58.4, Lymph % (Auto) 23.3, [place] % (Auto) 12.5 H, Eos % (Auto) 4.0, Baso % (Auto) 1.6 H, Absolute Neuts (auto) 3.0, Absolute Lymphs (auto) 1.18, Total Counted Not Reportable 12/29/18 06:20: Sodium 144, Potassium 4.0, Chloride 108 H, Carbon Dioxide 26.0, Anion Gap 10, BUN 14, Creatinine 0.90, Estim Creat Clear Calc 50.86, Est GFR (MDRD) Af Amer 80, Est GFR (MDRD) Non-Af 66, BUN/Creatinine Ratio 15.5, Glucose 88, Calcium 8.9 Current Medications [facility] Admin: 12/29/18 08:51 Dose: 81 mg Carvedilol (Coreg) 3.125 mg PO BID [facility] Sodium Chloride () 250 mls @ 15 mls/hr IV .[id number] PRN PRN Reason: SALINE FLUSH Labetalol HCl (Trandate) 10 mg IV Q4H PRN PRN PRN Reason: sbp > 160 Magnesium Hydroxide (Milk Of Magnesia) 30 ml PO DAILY PRN PRN Reason: Constipation Non-Formulary Medication (Rosuvastatin) 10 mg PO QHS [facility] [id number] Ethyl Esters (Lovaza) 1 gm PO DAILY [facility] Last Admin: 12/29/18 08:52 Dose: 1 gm Sodium Chloride () 5 - 15 ml IV UD PRN PRN Reason: SALINE FLUSH Medical Necessity - Tobacco Use Smoking Status: Never smoker Assessment/Plan All Active Problems (Last Updated 12/28/18 @ 20:09 by Joseph Guido MD) Nonsustained ventricular tachycardia (Acute) 1. Nonsustained ventricular tachycardia No further recurrence at this time Per the patient, she was symptomatic when this occurred. Cardiology on consult and plans for an echocardiogram and stress test 2. HTN stable continue home medications 3. DVT proph: SCDs Code Visit Inpatient E&M: 65849 Subs Hosp L2
--- NOTE | 2018-12-29 11:27 | PN_ITS ---
Patient Problems: Active and Suspected Problems (Last Updated 12/28/18 @ 20:09 by Joseph Guido MD) Nonsustained ventricular tachycardia (Acute) Subjective: No complaints. States that she has been having palpitations but the rhythm yesterday just caused her to feel when it happened. Vitals/I&O's: Vital Signs Temp Pulse Resp BP Pulse Ox 37.0 C 66 14 133/85 H 98 12/29/18 08:50 12/29/18 08:50 12/29/18 08:50 12/29/18 08:50 12/29/18 08:50 Oxygen Delivery Method Room Air Weight: 59.6 kg Body Mass Index (BMI) 22.8 Intake and Output for Last 24 Hours 12/27/18 12/28/18 12/29/18 23:59 23:59 23:59 Intake Total 375 / 375 Balance 375 / 375 General: Alert, No apparent distress HEENT: Atraumatic, Normocephalic Oral: Moist Mucosa, No Gingival or Mucosal Lesions/ Ulcerations Neck: No Nodes, Thyroid Normal Size and Texture Lungs: Clear to auscultation, Normal air movement, No rhonchi, No wheeze Cardiovascular: Regular rate, Regular Rhythm, Normal S1, Normal S2, No murmurs Abdomen: Bowel Sounds Present, Soft, Non Tender, Non-Distended, No Hepato- splenomegaly Extremities: No edema, No Calf Tenderness Skin: No rashes, No breakdown Psych/Mental Status: Normal Affect, Appropriate Laboratory Results 12/28/18 17:30: WBC 5.3, RBC 4.38, Hgb 13.3, Hct 40.7, MCV 92.9, MCH 30.4, MCHC 32.7, RDW 12.5, RDW Differential 41.4, Plt Count 204, MPV 9.5, Immature Gran % (Auto) 0.000, Neut % (Auto) 62.1, Lymph % (Auto) 20.3, [place] % (Auto) 12.9 H, Eos % (Auto) 3.6, Baso % (Auto) 1.1 H, Absolute Neuts (auto) 3.3, Absolute Lymphs (auto) 1.07, Total Counted Not Reportable 12/28/18 17:30: Sodium 141, Potassium 4.4, Chloride 107, Carbon Dioxide 28.0, Anion Gap 6, BUN 17, Creatinine 0.94, Estim Creat Clear Calc 48.70, Est GFR (MDRD) Af Amer 76, Est GFR (MDRD) Non-Af 63, BUN/Creatinine Ratio 18.0, Glucose 99, Calcium 9.4, Troponin I < 0.015 12/28/18 17:30: Magnesium 2.0 12/28/18 20:44: Troponin I < 0.015 12/28/18 23:10: Troponin I < 0.015 12/29/18 03:10: Urine Color Straw, Urine Clarity Clear, Urine pH 7.0, Ur Specific [place] 1.010, Urine Protein Negative, Urine Glucose (UA) Normal, Urine Ketones Negative, Urine Occult Blood 25 H, Urine Nitrite Negative, Urine Bilirubin Negative, Urine Urobilinogen Normal, Ur Leukocyte Esterase Negative, Urine RBC 0 SEEN, Urine WBC 0 SEEN, Ur Squamous Epith Cells 0-5 SEEN, Urine Bacteria 0 SEEN, Urine Mucus 0 SEEN 12/29/18 06:20: PT 13.7, INR 1.1, APTT 29.5 12/29/18 06:20: WBC 5.1, RBC 4.31, Hgb 13.3, Hct 39.8, MCV 92.3, MCH 30.9, MCHC 33.4, RDW 12.5, RDW Differential 40.9, Plt Count 191, MPV 9.6, Immature Gran % (Auto) 0.200, Neut % (Auto) 58.4, Lymph % (Auto) 23.3, [place] % (Auto) 12.5 H, Eos % (Auto) 4.0, Baso % (Auto) 1.6 H, Absolute Neuts (auto) 3.0, Absolute Lymphs (auto) 1.18, Total Counted Not Reportable 12/29/18 06:20: Sodium 144, Potassium 4.0, Chloride 108 H, Carbon Dioxide 26.0, Anion Gap 10, BUN 14, Creatinine 0.90, Estim Creat Clear Calc 50.86, Est GFR (MDRD) Af Amer 80, Est GFR (MDRD) Non-Af 66, BUN/Creatinine Ratio 15.5, Glucose 88, Calcium 8.9 Current Medications [facility] Admin: 12/29/18 08:51 Dose: 81 mg Carvedilol (Coreg) 3.125 mg PO BID [facility] Sodium Chloride () 250 mls @ 15 mls/hr IV .[id number] PRN PRN Reason: SALINE FLUSH Labetalol HCl (Trandate) 10 mg IV Q4H PRN PRN PRN Reason: sbp > 160 Magnesium Hydroxide (Milk Of Magnesia) 30 ml PO DAILY PRN PRN Reason: Constipation Non-Formulary Medication (Rosuvastatin) 10 mg PO QHS [facility] [id number] Ethyl Esters (Lovaza) 1 gm PO DAILY [facility] Last Admin: 12/29/18 08:52 Dose: 1 gm Sodium Chloride () 5 - 15 ml IV UD PRN PRN Reason: SALINE FLUSH Medical Necessity - Tobacco Use Smoking Status: Never smoker Assessment/Plan All Active Problems (Last Updated 12/28/18 @ 20:09 by Joseph Guido MD) Nonsustained ventricular tachycardia (Acute) 1. Nonsustained ventricular tachycardia No further recurrence at this time Per the patient, she was symptomatic when this occurred. Cardiology on consult and plans for an echocardiogram and stress test 2. HTN stable continue home medications 3. DVT proph: SCDs Code Visit Inpatient E&M: 30321 Subs Hosp L2
[2018-12-29] MEDS: Methylcellulose 2 GM Bottle PO (13:34)
[2018-12-29] MEDS: Carvedilol 3.125 MG TABLET PO ×2 (13:34→22:30)
--- NOTE | 2018-12-29 17:12 | CHAPLAIN ---
Type of Pastoral Visit _x__ Initial Visit ___ Follow-up Visit ___ On-call Visit ___ General Patient Visit ___ Spiritual Assessment ___ Family Conference ___ Bereavement ___ Rapid Response ___ Code Blue ___ Other (describe below) Pastoral Care Referral From _x__ Patient ___ Family ___ Nurse ___ Physician ___ Chief Technology Officer ___ Assurance Associate ___ Other (describe below) Sacrament/Intervention _x__ Active listening ___ Anointing ___ Pentecostalism ___ Bereavement ___ Communion _x__ Kiki exploration ___ ___ Life review _x__ Prayer ___ Reconciliation ___ Sacrament of Sick _x__ Supportive presence ___ Wedding ___ Other (describe below) Pastoral Comments many family members were in room with patient
[2018-12-30] VITALS (13 sets, daily range): BP systolic 117–155; BP diastolic 66–93; PULSE 59–90; RESP 16; TEMP 36.6–36.8; O2SAT 96–99
--- NOTE | 2018-12-30 05:55 | EKG12_ITS ---
Test Reason : AM EKG Blood Pressure : / mmHG Vent. Rate : 063 BPM Atrial Rate : 063 BPM P-R Int : 150 ms QRS Dur : 102 ms QT Int : 428 ms P-R-T Axes : 066 -10 090 degrees QTc Int : 437 ms Normal sinus rhythm Inferior infarct , age undetermined Abnormal ECG When compared with ECG of 29-DEC-2018 05:22, MANUAL COMPARISON REQUIRED, DATA IS UNCONFIRMED Confirmed by SEAN GENAO, VIOLA ([id number]), editorial manager DESTINY GOLDSTEIN ([id number]) on 01/04/2019 9:16:08 AM Referred By: DR HORTA Confirmed By:VIOLA ESTRADA MD
[2018-12-30] MEDS: Aspirin 81 MG TAB.CHEW PO (06:07)
[2018-12-30 06:33] LABS: Absolute Lymphocyte Count 1.12 X10^3/ul (0.83-4.51); Absolute Neutrophil Count 3.1 X10^3/uL (2.0-7.7); Basophil# 0.07 X10^3/uL; Basophil% 1.3 % (0-1); Eosinophil# 0.26 X10^3/uL; Eosinophils% 4.9 % (0-5); Hematocrit 39.4 % (37-47); Hemoglobin 13.1 g/dl (12.0-15.0); Lymphocyte # 1.12 X10^3/ul (4.0); Lymphocyte % 21.3 % (19-41); Mean Corp Hgb Conc 33.2 g/gl (32-36); Mean Corpuscular Hgb 30.3 pg (27.0-32.0); Mean Platelet Vol. 9.6 fl (6.2-12.0); Monocyte% 13.3 % (0-10); Neutrophil # 3.11 X10^3/uL (2.7-7.7); Neutrophil % 59.2 % (47-70); Platelet Count 185 K/mm3 (150-450); RBC Distribution Width CV 12.6 % (11.6-14.6); RBC Distribution Width SD 42.3 fl (35.1-43.9); Red Blood Count 4.33 M/mm3 (4.2-5.4); White Blood Count 5.3 K/mm3 (4.4-11.0)
[2018-12-30 06:38] LABS: POSITIVE COUNT NO; POSITIVE DIFFERENTIAL NO; POSITIVE MORPHOLOGY NO
[2018-12-30 07:06] LABS: Anion Gap 10 (5-15); BUN 21 mg/dL (7-18); BUN/Creat Ratio 22.1 RATIO (10-20); Calcium,Total 8.8 mg/dL (8.5-10.1); Chloride 108 mmol/L (98-107); Creatinine, Serum 0.95 mg/dL (0.55-1.02); EST Glomerular Filtration Rate 63 mL/min (>60); Est Glom Filt Rate - Afr Amer 76 mL/min (>60); Estimated Creatinine Clearance 48.19 ml/min; Glucose 90 mg/dL (74-106); Potassium 3.8 mmol/L (3.5-5.1); Sodium Level 143 mmol/L (136-145)
[2018-12-30 07:36] LABS: International Normalized Ratio 1.1; Prothrombin Time (Protime)PT. 14.1 SECONDS (11.7-14.9)
[2018-12-30 07:37] LABS: Partial Thromboplast Time 29.5 Seconds (24.1-36.2)
--- NOTE | 2018-12-30 10:20 | STRESSREP ---
Stress Test Report Pharmacologic myocardial perfusion stress test. 68-year-old lady with a history of previous myocardial infarction and nonsustained VT. Stress protocol: Resting EKG demonstrates sinus bradycardia with a rate of 52 bpm normal intervals are noted previous inferior infarct is noted. 0.4 mg of regadenoson was infused per usual protocol followed by intravenous saline injection. Continuous EKG monitoring was performed. The maximum heart rate was 105 bpm which was 68% maximum predicted heart rate the maximum workload was 1 metabolic equivalent. At rest there were no ST or T wave changes noted suggest abnormal flow reserve at peak infusion nonspecific ST-T wave changes were noted. The resting blood pressure was 120/70 final blood pressure was 132/80 mmHg. Myocardial perfusion protocol. 11.5 mCi of technetium 99m sestamibi was injected at rest. 0.4 mg of regadenoson was infused per usual protocol peak infusion 35.1 mCi of technetium 99m sestamibi was injected stress and rest images were reconstructed and compared in the short axis vertical long horizontal long axis. Gated images were also obtained per Perfusion SPECT analysis: Review of the stress images demonstrate normal uptake of tracer noted in all areas of myocardium except for a medium size area in the basal inferior and inferolateral wall. The stress images and the resting images have a similar pattern is suggestive of a previous basal inferior lateral infarct. No ischemia is noted. Gated SPECT analysis: The gated ejection fraction demonstrates reduced ejection fraction of 31% with inferior basal hypokinesis. Conclusion: Myocardial perfusion stress test with no evidence of ischemia. Previous inferior basal and inferolateral infarct noted. Reduced ejection fraction.
--- NOTE | 2018-12-30 11:08 | PCM.DC ---
- Discharge Diagnoses Current Active Problems: Current Active and Chronic Problems (Last Updated 12/28/18 @ 20:09 by Joseph Guido MD) Nonsustained ventricular tachycardia (Acute) Palpitations (Chronic) Reason(s) for Visit for Discharge Instructions: Palpitations You will use the following diet at home:: Cardiac Your food should be the consistency of: Regular Your liquids should be the consistency of: Regular/Thin Discharge Activity: Return to Normal Activity Additional Instructions: Take note of changes to your medications. Follow-up wit Dr. Larose within 1-2 weeks. Allergies/Adverse Reactions: Allergies erythromycin base [From Staticin] Allergy (Verified 12/28/18 17:16) Other ethyl alcohol [From Staticin] Allergy (Verified 12/28/18 17:16) Other Sulfa (Sulfonamide Antibiotics) Allergy (Verified 12/28/18 17:16) Other Medications to take at Discharge Aspirin [Aspirin, Baby] 81 mg PO DAILY 02/26/14 Rosuvastatin Calcium [Crestor] 10 mg PO QHS 02/26/14 [place]-3 Fatty Acids/Fish Oil [Fish Oil 1,000 mg Capsule] 1 each PO DAILY 12/28/18 Methylcellulose [Citrucel] 1,000 mg PO DAILY 12/29/18 Carvedilol 6.25 mg PO BID #60 tab 12/30/18 The following prescriptions were given: Carvedilol 6.25 mg PO BID #60 tab Primary Care Physician: Fabrizio Callahan MD [Primary Care Provider] - Please follow up with your Primary Care Physician in: within 1-2 weeks Test Results: Test results from this visit will be discussed in further detail at your follow-up appointment, if applicable. Proposed Discharge Date: 12/30/18
[2018-12-30] MEDS: Carvedilol 3.125 MG TABLET PO (11:23)
--- NOTE | 2018-12-30 11:57 | PCM.DC.SUM ---
Discharge Date and Diagnosis - Problem List Patient Problems: Active and Suspected Problems (Last Updated 12/28/18 @ 20:09 by Joseph Guido MD) Nonsustained ventricular tachycardia (Acute) Date of Admission: 12/28/18 Date of Discharge: 12/30/18 - Primary Discharge Diagnosis Active and Suspected Problems (Last Updated 12/28/18 @ 20:09 by Joseph Guido MD) Nonsustained ventricular tachycardia (Acute) - Secondary Discharge Diagnosis Chronic Problems (Last Updated 12/28/18 @ 20:09 by Joseph Guido MD) Palpitations (Chronic) Hospital Course and Treatment Imaging Results: 12/30/18 11:14 Nuclear Stress Test - Chemical [NM] Routine Summary of Care Provided: The patient is a 68 year old F [] Patient Problems: Active and Suspected Problems (Last Updated 12/28/18 @ 20:09 by Joseph Guido MD) Nonsustained ventricular tachycardia (Acute) - Physical Exam Vital Signs Temp Pulse Resp BP Pulse Ox 98.3 F 67 16 150/93 H 97 12/30/18 10:20 12/30/18 11:00 12/30/18 10:32 12/30/18 10:20 12/30/18 10:32 Oxygen Delivery Method Room Air Weight: 59.6 kg Body Mass Index (BMI) 22.8 Intake and Output for Last 24 Hours 12/28/18 12/29/18 12/30/18 23:59 23:59 23:59 Intake Total 375 / 375 740 / 740 Balance 375 / 375 740 / 740 Laboratory Tests Past 24 Hrs 12/30/18 12/30/18 12/30/18 05:45 05:45 05:45 WBC 5.3 RBC 4.33 Hgb 13.1 Hct 39.4 MCV 91.0 MCH 30.3 MCHC 33.2 RDW 12.6 RDW Differential 42.3 Plt Count 185 MPV 9.6 Immature Gran % (Auto) 0.000 Neut % (Auto) 59.2 Lymph % (Auto) 21.3 Walsh % (Auto) 13.3 H Eos % (Auto) 4.9 Baso % (Auto) 1.3 H Absolute Neuts (auto) 3.1 Absolute Lymphs (auto) 1.12 Total Counted Not Reportable PT 14.1 INR 1.1 APTT 29.5 Sodium 143 Potassium 3.8 Chloride 108 H Carbon Dioxide 25.0 Anion Gap 10 BUN 21 H Creatinine 0.95 Estim Creat Clear Calc 48.19 Est GFR (MDRD) Af Amer 76 Est GFR (MDRD) Non-Af 63 BUN/Creatinine Ratio 22.1 H Glucose 90 Calcium 8.8 Discharge Activity: Return to Normal Activity Home Medications: Medications to take at Discharge Aspirin [Aspirin, Baby] 81 mg PO DAILY 02/26/14 Rosuvastatin Calcium [Crestor] 10 mg PO QHS 02/26/14 [place]-3 Fatty Acids/Fish Oil [Fish Oil 1,000 mg Capsule] 1 each PO DAILY 12/28/18 Methylcellulose [Citrucel] 1,000 mg PO DAILY 12/29/18 Carvedilol 6.25 mg PO BID #60 tab 12/30/18 Following Prescrptions Were Given to Patient: Carvedilol 6.25 mg PO BID #60 tab Primary Care Physician: Fabrizio Callahan MD [Primary Care Provider] - Medical Necessity - Tobacco Use Smoking Status: Never smoker
--- NOTE | 2018-12-30 12:13 | PCM.PN.BLA ---
Progress Note Complaining of palpitations. However no arrhythmia was noted on telemetry. Inferior lateral scar noted on nuclear stress test. Reversible ischemia. However ejection fraction noted at 31%. Echocardiogram showing ejection fraction of 47%. Because of the discrepancy between the nuclear study and echocardiogram regarding LV function and also because of the fact that she has been having nonsustained ventricular tachycardia, recommended cardiac catheterization with coronary angiography to evaluate coronary anatomy as well as to assess LV function. Patient wishes to have the procedure done during this admission. We will schedule with Dr. Parrish on Tuesday.
--- NOTE | 2018-12-30 12:16 | PN_ITS ---
Progress Note Complaining of palpitations. However no arrhythmia was noted on telemetry. Inferior lateral scar noted on nuclear stress test. Reversible ischemia. However ejection fraction noted at 31%. Echocardiogram showing ejection fraction of 47%. Because of the discrepancy between the nuclear study and echocardiogram regarding LV function and also because of the fact that she has been having nonsustained ventricular tachycardia, recommended cardiac catheterization with coronary angiography to evaluate coronary anatomy as well as to assess LV f unction. Patient wishes to have the procedure done during this admission. We will schedule with Dr. Parrish on Tuesday.
--- NOTE | 2018-12-30 12:17 | PN_ITS ---
Patient Problems: Active and Suspected Problems (Last Updated 12/28/18 @ 20:09 by Joseph Guido MD) Nonsustained ventricular tachycardia (Acute) Subjective: Patient was seen and examined. She had a stress test this morning that was negative. Has some nausea and headache. Denied any chest pain. Complains of occasional palpitation. No arrhythmias seen on telemetry. Discussed with cardiology, initially patient was going to be discharged home with an increased dose of carvedilol but patient expressed reluctance at being discharged. She would have cardiac cath on Tuesday with Dr. Parrish. Vitals/I&O's: Vital Signs Temp Pulse Resp BP Pulse Ox 98.3 F 67 16 150/93 H 97 12/30/18 10:20 12/30/18 11:00 12/30/18 10:32 12/30/18 10:20 12/30/18 10:32 Oxygen Delivery Method Room Air Weight: 59.6 kg Body Mass Index (BMI) 22.8 Intake and Output for Last 24 Hours 12/28/18 12/29/18 12/30/18 23:59 23:59 23:59 Intake Total 375 / 375 740 / 740 120 / 120 Balance 375 / 375 740 / 740 120 / 120 General: Alert, Oriented x3, Cooperative, No apparent distress HEENT: Atraumatic, PERRLA, EOMI, Normocephalic Oral: Moist Mucosa Neck: Supple, No JVD, Negative Carotid Bruits Lungs: Clear to auscultation, Normal air movement Cardiovascular: Regular rate, Regular Rhythm, Normal S1, Normal S2, No murmurs Abdomen: Bowel Sounds Present, Soft, Non Tender, Non-Distended, No Hepato- splenomegaly Extremities: No edema Skin: No rashes, No breakdown Musculoskeletal: No Tenderness to Palpation of Joints or Extremities Lymphatic: No Cervical, Supraclavicular, or Inguinal Adenopathy Neurological: Cranial nerves II-XII grossly intact, Neuro grossly intact Psych/Mental Status: Normal Affect, Appropriate Laboratory Results 12/30/18 05:45: WBC 5.3, RBC 4.33, Hgb 13.1, Hct 39.4, MCV 91.0, MCH 30.3, MCHC 33.2, RDW 12.6, RDW Differential 42.3, Plt Count 185, MPV 9.6, Immature Gran % (Auto) 0.000, Neut % (Auto) 59.2, Lymph % (Auto) 21.3, [place] % (Auto) 13.3 H, Eos % (Auto) 4.9, Baso % (Auto) 1.3 H, Absolute Neuts (auto) 3.1, Absolute Lymphs (auto) 1.12, Total Counted Not Reportable 12/30/18 05:45: PT 14.1, INR 1.1, APTT 29.5 12/30/18 05:45: Sodium 143, Potassium 3.8, Chloride 108 H, Carbon Dioxide 25.0, Anion Gap 10, BUN 21 H, Creatinine 0.95, Estim Creat Clear Calc 48.19, Est GFR (MDRD) Af Amer 76, Est GFR (MDRD) Non-Af 63, BUN/Creatinine Ratio 22.1 H, Glucose 90, Calcium 8.8 Current Medications Acetaminophen (Tylenol) 650 mg PO Q6H PRN PRN PRN Reason: PAIN [facility] Last Admin: 12/30/18 06:07 Dose: 81 mg Carvedilol (Coreg) 3.125 mg PO BID COUNTS INCLUDE 234 BEDS AT THE [facility] Last Admin: 12/30/18 11:23 Dose: 3.125 mg Sodium Chloride () 250 mls @ 15 mls/hr IV .[id number] PRN PRN Reason: SALINE FLUSH Labetalol HCl (Trandate) 10 mg IV Q4H PRN PRN PRN Reason: sbp > 160 Magnesium Hydroxide (Milk Of Magnesia) 30 ml PO DAILY PRN PRN Reason: Constipation Methylcellulose (Citrucel) 2 gm PO DAILY COUNTS INCLUDE 234 BEDS AT THE [facility] Last Admin: 12/30/18 11:24 Dose: Not Given Tkyar-5-Tjeb Ethyl Esters (Lovaza) 1 gm PO DAILY COUNTS INCLUDE 234 BEDS AT THE [facility] Last Admin: 12/30/18 11:24 Dose: Not Given Ondansetron HCl (Zofran) 4 mg IV Q6H PRN PRN PRN Reason: NAUSEA Rosuvastatin Calcium (Crestor) 10 mg PO QHS COUNTS INCLUDE 234 BEDS AT THE [facility] Last Admin: 12/29/18 22:33 Dose: 10 mg Sodium Chloride () 5 - 15 ml IV UD PRN PRN Reason: SALINE FLUSH Medical Necessity - Tobacco Use Smoking Status: Never smoker Assessment/Plan All Active Problems (Last Updated 12/28/18 @ 20:09 by Joseph Guido MD) Nonsustained ventricular tachycardia (Acute) 68-year-old female with past medical history of palpitations, hypertension, CAD status post [place], history of abdominal aortic aneurysm, hyperlipidemia, follows with Dr. Yun comes in with complaints of palpitations. Patient had recently had an event monitor prescribed by Dr. Yun and he has shown 2 rounds of nonsustained V. tach yesterday and she was subsequently sent to the hospital. 1. Nonsustained V. tach, in NSR, off Verapamil, started on Carvedilol, will continue to monitor; will have cardiac cath on Tuesday. 2. Hypertension, controlled, on carvedilol, continue to monitor. 3. CAD, no changes on EKG, stress test negative, on aspirin, beta-speedy, statin 4. DVT PPx- Heparin SC Code Visit Inpatient E&M: 53645 Subs Hosp L2
--- NOTE | 2018-12-30 14:53 | CM.UR ---
Heart Cath: Plan is for heart cath for patient on Tuesday. She has traditional MCR so she can go to any Hospital active in Medicare program. Upon speaking with patient she would prefer to go to [facility], if necessary for transfer. Call Case mgmt if any additional information is needed at ext [phone].
--- NOTE | 2018-12-30 14:56 | CM.UR ---
RN CM Assessment Met face to face with patient for initial transition planning/care coordination assessment. Introduced myself and my role. Verb understanding and agreement for assessment. Presentation: Has been having palpitations & lightheadedness but recently worsened. Had OP holter that showed some non-sustained Vtach so she was advised to come to hospital. PCP: Dr. Callahan Specialists: Dr Yun (cardio); Dr. Swan (Machine [employer]s Helper); William (vascular). Preferred Pharmacy: [facility] [place]. Insurance: [facility] Prescription Benefit: yes AARP Home: 1.5 level, 2 steps to get in. DENIES problems. ADLs: DENIES needing help with any adls or iadls. Transportation: able to drive self. DME: none. If any needs preferred company is [employer] in [place]. SNF/HHC: None Advance Directives: States has AD at home and has been asked already to bring them. DC PLAN: TBD pending heart cath on Tuesday. If patient needs transferred she prefers to go to [facility]. Jim Umanzor RN, CCM.
[2018-12-30] MEDS: Carvedilol 6.25 MG Tablet PO (21:38)
[2018-12-31] VITALS (10 sets, daily range): BP systolic 113–138; BP diastolic 68–83; PULSE 52–78; RESP 14–18; TEMP 36.6–36.7; O2SAT 96–100
[2018-12-31] MEDS: 0.9% NaCl Peripheral Flush Adult/Peds IV ×2 (03:40→21:22)
[2018-12-31] MEDS: Aspirin 81 MG TAB.CHEW PO (09:56)
[2018-12-31] MEDS: Methylcellulose 2 GM Bottle PO (09:58)
[2018-12-31] MEDS: Omega-3 Acid Ethyl Esters 1 GM Capsule PO (09:58)
[2018-12-31] MEDS: Carvedilol 6.25 MG Tablet PO ×2 (09:59→21:18)
--- NOTE | 2018-12-31 11:08 | PCM.PN.HOSP ---
Patient Problems: Active and Suspected Problems (Last Updated 12/28/18 @ 20:09 by Joseph Guido MD) Nonsustained ventricular tachycardia (Acute) Subjective: Patient was seen and examined. Still has palpitations. Denies chest pain, SOB, dizziness. Telemetry shows no arrhythmias seen on telemetry. Waiting on cardiac cath in am. Vitals/I&O's: Vital Signs Temp Pulse Resp BP Pulse Ox 98.1 F 77 14 113/68 98 12/31/18 09:53 12/31/18 09:53 12/31/18 09:53 12/31/18 09:53 12/31/18 09:53 Oxygen Delivery Method Room Air Weight: 59.6 kg Body Mass Index (BMI) 22.8 Intake and Output for Last 24 Hours 12/29/18 12/30/18 12/31/18 23:59 23:59 23:59 Intake Total 740 / 740 620 / 620 360 / 360 Balance 740 / 740 620 / 620 360 / 360 General: Alert, Oriented x3, Cooperative, No apparent distress HEENT: Atraumatic, PERRLA, EOMI, Normocephalic Oral: Moist Mucosa Neck: Supple, No JVD, Negative Carotid Bruits Lungs: Clear to auscultation, Normal air movement Cardiovascular: Regular rate, Regular Rhythm, Normal S1, Normal S2, No murmurs Abdomen: Bowel Sounds Present, Soft, Non Tender, Non-Distended, No Hepato-splenomegaly Extremities: No edema Skin: No rashes, No breakdown Musculoskeletal: No Tenderness to Palpation of Joints or Extremities Lymphatic: No Cervical, Supraclavicular, or Inguinal Adenopathy Neurological: Cranial nerves II-XII grossly intact, Neuro grossly intact Psych/Mental Status: Normal Affect, Appropriate Current Medications Acetaminophen (Tylenol) 650 mg PO Q6H PRN PRN PRN Reason: PAIN [facility] Last Admin: 12/31/18 09:56 Dose: 81 mg Carvedilol (Coreg) 6.25 mg PO BID [facility] Last Admin: 12/31/18 09:59 Dose: 6.25 mg Heparin Sodium (Porcine) (Heparin Na) 5,000 unit SC Q12 [facility] Last Admin: 12/31/18 09:58 Dose: Not Given Sodium Chloride () 250 mls @ 15 mls/hr IV .[id number] PRN PRN Reason: SALINE FLUSH Sodium Chloride () 1,000 mls @ 0 mls/hr IV .Q0M [facility] Labetalol HCl (Trandate) 10 mg IV Q4H PRN PRN PRN Reason: sbp > 160 Magnesium Hydroxide (Milk Of Magnesia) 30 ml PO DAILY PRN PRN Reason: Constipation Methylcellulose (Citrucel) 2 gm PO DAILY [facility] Last Admin: 12/31/18 09:58 Dose: 2 gm Nywib-4-Ygaf Ethyl Esters (Lovaza) 1 gm PO DAILY [facility] Last Admin: 12/31/18 09:58 Dose: 1 gm Ondansetron HCl (Zofran) 4 mg IV Q6H PRN PRN PRN Reason: NAUSEA Rosuvastatin Calcium (Crestor) 10 mg PO QHS [facility] Last Admin: 12/30/18 21:39 Dose: 10 mg Sodium Chloride () 5 - 15 ml IV UD PRN PRN Reason: SALINE FLUSH Last Admin: 12/31/18 03:40 Dose: 10 ml Medical Necessity - Tobacco Use Smoking Status: Never smoker Assessment/Plan All Active Problems (Last Updated 12/28/18 @ 20:09 by Joseph Guido MD) Nonsustained ventricular tachycardia (Acute) 68-year-old female with past medical history of palpitations, hypertension, CAD status post [place], history of abdominal aortic aneurysm, hyperlipidemia, follows with Dr. Yun comes in with complaints of palpitations. Patient had recently had an event monitor prescribed by Dr. Yun and he has shown nonsustained V. tach yesterday and she was subsequently sent to the hospital. 1. Nonsustained V. tach, in NSR, off Verapamil, on Carvedilol, will continue to monitor, cardiac cath on Tuesday. 2. Hypertension, controlled, on carvedilol, continue to monitor. 3. CAD, no changes on EKG, stress test negative, on aspirin, beta-speedy, statin 4. DVT PPx- Heparin SC Code Visit Inpatient E&M: 12039 Subs Hosp L2
--- NOTE | 2018-12-31 11:14 | PN_ITS ---
Patient Problems: Active and Suspected Problems (Last Updated 12/28/18 @ 20:09 by Joseph Guido MD) Nonsustained ventricular tachycardia (Acute) Subjective: Patient was seen and examined. Still has palpitations. Denies chest pain, SOB, dizziness. Telemetry shows no arrhythmias seen on telemetry. Waiting on cardiac cath in am. Vitals/I&O's: Vital Signs Temp Pulse Resp BP Pulse Ox 98.1 F 77 14 113/68 98 12/31/18 09:53 12/31/18 09:53 12/31/18 09:53 12/31/18 09:53 12/31/18 09:53 Oxygen Delivery Method Room Air Weight: 59.6 kg Body Mass Index (BMI) 22.8 Intake and Output for Last 24 Hours 12/29/18 12/30/18 12/31/18 23:59 23:59 23:59 Intake Total 740 / 740 620 / 620 360 / 360 Balance 740 / 740 620 / 620 360 / 360 General: Alert, Oriented x3, Cooperative, No apparent distress HEENT: Atraumatic, PERRLA, EOMI, Normocephalic Oral: Moist Mucosa Neck: Supple, No JVD, Negative Carotid Bruits Lungs: Clear to auscultation, Normal air movement Cardiovascular: Regular rate, Regular Rhythm, Normal S1, Normal S2, No murmurs Abdomen: Bowel Sounds Present, Soft, Non Tender, Non-Distended, No Hepato- splenomegaly Extremities: No edema Skin: No rashes, No breakdown Musculoskeletal: No Tenderness to Palpation of Joints or Extremities Lymphatic: No Cervical, Supraclavicular, or Inguinal Adenopathy Neurological: Cranial nerves II-XII grossly intact, Neuro grossly intact Psych/Mental Status: Normal Affect, Appropriate Current Medications Acetaminophen (Tylenol) 650 mg PO Q6H PRN PRN PRN Reason: PAIN Aspirin ([facility], Baby) [facility] Last Admin: 12/31/18 09:56 Dose: 81 mg Carvedilol (Coreg) 6.25 mg PO BID [facility] Last Admin: 12/31/18 09:59 Dose: 6.25 mg Heparin Sodium (Porcine) (Heparin Na) 5,000 unit SC Q12 [facility] Last Admin: 12/31/18 09:58 Dose: Not Given Sodium Chloride () 250 mls @ 15 mls/hr IV .[id number] PRN PRN Reason: SALINE FLUSH Sodium Chloride () 1,000 mls @ 0 mls/hr IV .Q0M [facility] Labetalol HCl (Trandate) 10 mg IV Q4H PRN PRN PRN Reason: sbp > 160 Magnesium Hydroxide (Milk Of Magnesia) 30 ml PO DAILY PRN PRN Reason: Constipation Methylcellulose (Citrucel) 2 gm PO DAILY [facility] Last Admin: 12/31/18 09:58 Dose: 2 gm Pecto-6-Sdaj Ethyl Esters (Lovaza) 1 gm PO DAILY [facility] Last Admin: 12/31/18 09:58 Dose: 1 gm Ondansetron HCl (Zofran) 4 mg IV Q6H PRN PRN PRN Reason: NAUSEA Rosuvastatin Calcium (Crestor) 10 mg PO QHS [facility] Last Admin: 12/30/18 21:39 Dose: 10 mg Sodium Chloride () 5 - 15 ml IV UD PRN PRN Reason: SALINE FLUSH Last Admin: 12/31/18 03:40 Dose: 10 ml Medical Necessity - Tobacco Use Smoking Status: Never smoker Assessment/Plan All Active Problems (Last Updated 12/28/18 @ 20:09 by Joseph Guido MD) Nonsustained ventricular tachycardia (Acute) 68-year-old female with past medical history of palpitations, hypertension, CAD status post [place], history of abdominal aortic aneurysm, hyperlipidemia, follows with Dr. Yun comes in with complaints of palpitations. Patient had recently had an event monitor prescribed by Dr. Yun and he has shown nonsustained V. tach yesterday and she was subsequently sent to the hospital. 1. Nonsustained V. tach, in NSR, off Verapamil, on Carvedilol, will continue to monitor, cardiac cath on Tuesday. 2. Hypertension, controlled, on carvedilol, continue to monitor. 3. CAD, no changes on EKG, stress test negative, on aspirin, beta-speedy, statin 4. DVT PPx- Heparin SC Code Visit Inpatient E&M: 62432 Subs Hosp L2
--- NOTE | 2018-12-31 13:34 | PCM.PN.BLA ---
Progress Note For cardiac catheterization and coronary angiography in the morning by Dr. Parrish. Will load with clopidogrel tonight.
[2018-12-31 20:46] LABS: Bacteria 0 SEEN /hpf (None Seen); Mucous, Urine 0 SEEN /hpf (<or=2+); Red Blood Cells-Urine 0 SEEN /hpf (0-5); White Blood Cells 0 SEEN /hpf (0-5)
[2018-12-31 20:49] LABS: Color, Urine Straw (Yellow); Glucose, Dipstick Normal (Normal); Ketone-Dipstick Negative (Negative); Leukocyte Esterase-Dipstick Negative /ul (Negative); Nitrite-Dipstick Negative (Negative); Occult Blood-Urine 25 /ul (Negative); Protein-Dipstick Negative (Negative); Urine Bilirubin Dipstick Negative (Negative); Urine Clarity Clear (Clear); Urine Urobilinogen Normal (Normal)
[2018-12-31 20:59] LABS: Squamous Epithelial Cells - UA 0-5 SEEN /hpf (5-10)
[2018-12-31] MEDS: Clopidogrel Bisulfate 300 MG Tablet PO (21:18)
[2019-01-01] VITALS (12 sets, daily range): BP systolic 120–140; BP diastolic 74–82; PULSE 55–88; RESP 16–18; TEMP 36.6–37.1; O2SAT 96–133
--- NOTE | 2019-01-01 05:00 | EKG12_ITS ---
Test Reason : Blood Pressure : / mmHG Vent. Rate : 067 BPM Atrial Rate : 067 BPM P-R Int : 164 ms QRS Dur : 102 ms QT Int : 408 ms P-R-T Axes : 066 -18 118 degrees QTc Int : 431 ms Normal sinus rhythm Inferior-posterior infarct , age undetermined Abnormal ECG When compared with ECG of 30-DEC-2018 05:06, MANUAL COMPARISON REQUIRED, DATA IS UNCONFIRMED Confirmed by SEAN GENAO, VIOLA ([id number]), metropolitan editor DESTINY GOLDSTEIN ([id number] on 01/04/2019 8:51:33 AM Referred By: Confirmed By:VIOLA ESTRADA MD
[2019-01-01 05:08] LABS: Hematocrit 39.9 % (37-47); Hemoglobin 13.4 g/dl (12.0-15.0); Mean Corp Hgb Conc 33.6 g/gl (32-36); Mean Corpuscular Hgb 30.9 pg (27.0-32.0); Mean Corpuscular Volume 91.9 fL (81-99); Mean Platelet Vol. 9.4 fl (6.2-12.0); Platelet Count 188 K/mm3 (150-450); RBC Distribution Width CV 12.4 % (11.6-14.6); Red Blood Count 4.34 M/mm3 (4.2-5.4); White Blood Count 5.2 K/mm3 (4.4-11.0)
[2019-01-01 05:10] LABS: Scan Indicated on CBC? Y/N NO
[2019-01-01 05:14] LABS: Prothrombin Time (Protime)PT. 13.4 SECONDS (11.7-14.9)
[2019-01-01 05:15] LABS: Partial Thromboplast Time 28.3 Seconds (24.1-36.2)
[2019-01-01 05:21] LABS: Anion Gap 9 (5-15); BUN 21 mg/dL (7-18); BUN/Creat Ratio 23.2 RATIO (10-20); Calcium,Total 8.6 mg/dL (8.5-10.1); Chloride 108 mmol/L (98-107); Creatinine, Serum 0.91 mg/dL (0.55-1.02); EST Glomerular Filtration Rate 66 mL/min (>60); Est Glom Filt Rate - Afr Amer 80 mL/min (>60); Glucose 93 mg/dL (74-106); Potassium 3.9 mmol/L (3.5-5.1); Sodium Level 143 mmol/L (136-145)
[2019-01-01] MEDS: Aspirin 81 MG TAB.CHEW PO (06:03)
[2019-01-01] MEDS: Clopidogrel Bisulfate 75 MG Tablet PO (06:03)
[2019-01-01] MEDS: Carvedilol 6.25 MG Tablet PO (06:03)
[2019-01-01 08:50] LABS: Magnesium 1.8 mg/dL (1.6-2.6); Thyroid Stim Hormone (TSH) 2.94 uIU/mL (0.358-3.74)
--- NOTE | 2019-01-01 09:08 | CL.D_ITS ---
Patient Name: DAVID ARAUZ Study Date: 01/01/2019 Performing: Edmar Parrish MD Ht: 63 inches 161 cm : 1950 Wt: 132.5 lbs 60 kg Age: 68 Gender: female BSA: 1.63 PROCEDURE(S) PERFORMED [id number] RENAL ANGIO WITH HEART CATH CLINICAL PROFILE AND INDICATIONS Indications: Cardiac Arrythmia Heart Failure: None Stress/Imaging Stress Test w/SPECT MPI: Yes Result: NegativeStress Test with SPECT MPI: Negative CAD Presentations: No Sxs, no angina. CONCLUSIONS Mild CAD in the LAD and left circumflex and severe disease in a small RCA non dominant RECOMMENDATIONS Will recommend vascular evaluation for aortic aneurysm and then depending on the findings would consi rola elective angioplasty to the right coronary artery and interval defibrillator placement due to the reduced left ventricular ejection fraction. DESCRIPTION OF PROCEDURE The patient arrived to the procedure lab. The risks and benefits of the procedure as well as a full d escription of our services here and current unavailability of surgical backup were fully explained to the patient and/or their significant other prior to the catheterization. The Timeout was completed, verifying the correct patient and procedure. The patient's procedural site was prepped and draped in the usual fashion. Local anesthetic was given subcutaneously to right groin region with Lidocaine 2%. Using a modified Seldinger technique, arterial access was obtained via the right femoral artery, a 5 Fr sheath was inserted. Left Coronary Artery selective angiography was performed in multiple views u sing a 5 Fr. JL4 catheter. Right Coronary Artery selective angiography was then performed in multiple views using a 5 Fr. 3DRC (Josafat) catheter. Left Ventriculography was performed in MANDEL projection using a 5 Fr. Pigtail catheter. LV to AO pullback pressures were then recorded. Abdominal aorta selective angiography was then performed in single view.Contrast was injected through the sheat h and the Right Iliac and Femoral artery were assessed for possible closure device.The arterial sheat h was pulled and a Mynx closure device was deployed for hemostasis CORONARY ANGIOGRAPHY DOMINANCE: Left Dominant LEFT HEART ASSESSMENT Left Ventricular Ejection Fraction: by LV Gram 35 % Inferior Basal Akinesis. Anterior Hypokinesis - Moderate Depressed Left Ventricular systolic function Descending aortic anuerysm LEFT MAIN: Angiographically normal LEFT ANTERIOR DECENDING ARTERY: Mild luminal irregularities less than 30% DIAGONAL 1: Proximal - Mild luminal irregularities CIRCUMFLEX ARTERY: MID CIRC: Previously placed stent is patent RIGHT CORONARY ARTERY: PROX RCA: 70 sequential % Stenosis COMPLICATIONS No Complications PROCEDURE MEDICATIONS Versed 1 mg IV Versed 1 mg IV Oxygen: 2 L/min via nasal cannula SUMMARY OF HEMODYNAMIC DATA Time AIR REST ECG 07:46:27 AO 139/80 (105) SA 08:08:21 LV 136/3, 8 08:17:35 LV 133/3, 8 08:17:42 LV 143/-1, 12 08:18:30 LV 141/-2, 12 08:18:36 LVp 142/-4, 12 08:18:42 AOp 142/72 (100) 08:18:47 Signed By Edmar Parrish MD On 01/01/2019 09:07:27 Edmar Parrish MD
--- NOTE | 2019-01-01 09:10 | PCM.PN.CARD ---
Objective: Vital Signs Temp Pulse Resp BP Pulse Ox 97.8 F 88 18 140/82 H 96 01/01/19 06:02 01/01/19 07:10 01/01/19 06:02 01/01/19 06:02 01/01/19 06:02 Oxygen Delivery Method Room Air Weight: 131 lb 6.328 oz Body Mass Index (BMI) 22.8 Intake and Output for Last 24 Hours 12/30/18 12/31/18 01/01/19 23:59 23:59 23:59 Intake Total 620 / 620 1280 / 1280 Output Total 3 / 3 Balance 620 / 620 1277 / 1277 General: Awake, Alert, Oriented x 3 HEENT: PERRL, EOMI, Sclera Non Icteric Neck: Supple, Good ROM, No Lymph Node Enlargement Lungs: Clear to auscultation Cardiovascular: Regular Rhythm, Normal S1, Normal S2, No Murmurs, No Rubs, No Gallops Vascular: No Carotid Bruits, Normal Femoral Pulses, Normal Radial Pulses, Normal Dorsalis Pedal Pulse, Normal Posterior Tibial Pulses Abdomen: Bowel Sounds Present, Soft, Non Tender, No HSM, No Organomegaly Extremities: No Cyanosis, No Clubbing, No edema Musculoskeletal: No Erythema Skin: No Rashes Lymphatic: No Lymph Node Enlargement Neurological: No Focal Motor or Sensory Deficit Psych/Mental Status: Appropriate 12/31/18 20:20: Urine Color Straw, Urine Clarity Clear, Urine pH 6.0, Ur Specific [place] 1.010, Urine Protein Negative, Urine Glucose (UA) Normal, Urine Ketones Negative, Urine Occult Blood 25 H, Urine Nitrite Negative, Urine Bilirubin Negative, Urine Urobilinogen Normal, Ur Leukocyte Esterase Negative, Urine RBC 0 SEEN, Urine WBC 0 SEEN 01/01/19 05:00: Sodium 143, Potassium 3.9, Chloride 108 H, Carbon Dioxide 26.0, Anion Gap 9, BUN 21 H, Creatinine 0.91, Est GFR (MDRD) Af Amer 80, Est GFR (MDRD) Non-Af 66, BUN/Creatinine Ratio 23.2 H, Glucose 93, Calcium 8.6 01/01/19 05:00: WBC 5.2, RBC 4.34, Hgb 13.4, Hct 39.9, MCV 91.9, MCH 30.9, MCHC 33.6, RDW 12.4, RDW Differential 41.0, Plt Count 188, MPV 9.4 01/01/19 05:00: PT 13.4, INR 1.0, APTT 28.3 01/01/19 05:00: Magnesium 1.8 Rhythm: EKG: ECHO: Stress Test: Cardiac Cath: PCI: CT Surgery: Holter monitor: EPS: PPM: CXR: Chest CT Scan: Medical Necessity - Tobacco Use Smoking Status: Never smoker Assessment/Plan 1. CAD Patient has known history of coronary artery disease. The cardiac catheterization done today demonstrated patency of the previously placed stent in the circumflex artery. The left anterior descending artery has mild disease. Nondominant right coronary artery has sequential stenosis. No ischemia however is noted in the area of this. Due to her other concomitant problems I would recommend that we obtain input from the vascular surgeon regarding the aneurysm before we proceed with trying to angioplasty the right coronary artery if at all. 2. Abdominal aortic aneurysm Patient has a history of abdominal aortic aneurysm which is documented on this visit as well. Would recommend reevaluation by the vascular surgeon. 3. Nonsustained ventricular tachycardia Patient has borderline ejection fraction of between 35 and 40% by angiography. Would recommend starting beta-speedy as well as ISA inhibitor. 4. Left ventricular systolic dysfunction Patient appears to have left ventricular systolic dysfunction out of proportion to the coronary artery disease. Would maximize medical therapy with beta-speedy and ISA inhibitor. If the ejection fraction remains low we will consider interval primary prevention with defibrillator. Will discuss above with primary bladder blower.
--- NOTE | 2019-01-01 09:22 | PN.CARD_ITS ---
Objective: Vital Signs Temp Pulse Resp BP Pulse Ox 97.8 F 88 18 140/82 H 96 01/01/19 06:02 01/01/19 07:10 01/01/19 06:02 01/01/19 06:02 01/01/19 06:02 Oxygen Delivery Method Room Air Weight: 131 lb 6.328 oz Body Mass Index (BMI) 22.8 Intake and Output for Last 24 Hours 12/30/18 12/31/18 01/01/19 23:59 23:59 23:59 Intake Total 620 / 620 1280 / 1280 Output Total 3 / 3 Balance 620 / 620 1277 / 1277 General: Awake, Alert, Oriented x 3 HEENT: PERRL, EOMI, Sclera Non Icteric Neck: Supple, Good ROM, No Lymph Node Enlargement Lungs: Clear to auscultation Cardiovascular: Regular Rhythm, Normal S1, Normal S2, No Murmurs, No Rubs, No Gallops Vascular: No Carotid Bruits, Normal Femoral Pulses, Normal Radial Pulses, Normal Dorsalis Pedal Pulse, Normal Posterior Tibial Pulses Abdomen: Bowel Sounds Present, Soft, Non Tender, No HSM, No Organomegaly Extremities: No Cyanosis, No Clubbing, No edema Musculoskeletal: No Erythema Skin: No Rashes Lymphatic: No Lymph Node Enlargement Neurological: No Focal Motor or Sensory Deficit Psych/Mental Status: Appropriate 12/31/18 20:20: Urine Color Straw, Urine Clarity Clear, Urine pH 6.0, Ur Specific [place] 1.010, Urine Protein Negative, Urine Glucose (UA) Normal, Urine Ketones Negative, Urine Occult Blood 25 H, Urine Nitrite Negative, Urine Bilirubin Negative, Urine Urobilinogen Normal, Ur Leukocyte Esterase Negative, Urine RBC 0 SEEN, Urine WBC 0 SEEN 01/01/19 05:00: Sodium 143, Potassium 3.9, Chloride 108 H, Carbon Dioxide 26.0, Anion Gap 9, BUN 21 H, Creatinine 0.91, Est GFR (MDRD) Af Amer 80, Est GFR (MDRD) Non-Af 66, BUN/Creatinine Ratio 23.2 H, Glucose 93, Calcium 8.6 01/01/19 05:00: WBC 5.2, RBC 4.34, Hgb 13.4, Hct 39.9, MCV 91.9, MCH 30.9, MCHC 33.6, RDW 12.4, RDW Differential 41.0, Plt Count 188, MPV 9.4 01/01/19 05:00: PT 13.4, INR 1.0, APTT 28.3 01/01/19 05:00: Magnesium 1.8 Rhythm: EKG: ECHO: Stress Test: Cardiac Cath: PCI: CT Surgery: Holter monitor: EPS: PPM: CXR: Chest CT Scan: Medical Necessity - Tobacco Use Smoking Status: Never smoker Assessment/Plan 1. CAD Patient has known history of coronary artery disease. The cardiac catheterization done today demonstrated patency of the previously placed stent in the circumflex artery. The left anterior descending artery has mild disease. Nondominant right coronary artery has sequential stenosis. No ischemia however is noted in the area of this. * Due to her other concomitant problems I would recommend that we obtain input from the vascular surgeon regarding the aneurysm before we proceed with trying to angioplasty the right coronary artery if at all. * 2. Abdominal aortic aneurysm * Patient has a history of abdominal aortic aneurysm which is documented on this visit as well. Would recommend reevaluation by the vascular surgeon. * 3. Nonsustained ventricular tachycardia * Patient has borderline ejection fraction of between 35 and 40% by angiography. Would recommend starting beta-speedy as well as ISA inhibitor. * 4. Left ventricular systolic dysfunction * Patient appears to have left ventricular systolic dysfunction out of proportion to the coronary artery disease. Would maximize medical therapy with beta-speedy and ISA inhibitor. * If the ejection fraction remains low we will consider interval primary prev ention with defibrillator. * Will discuss above with primary electric arc welder.
--- NOTE | 2019-01-01 10:56 | PCM.DC ---
- Discharge Diagnoses Current Active Problems: Current Active and Chronic Problems (Last Updated 12/28/18 @ 20:09 by Joseph Guido MD) Nonsustained ventricular tachycardia (Acute) Palpitations (Chronic) Reason(s) for Visit for Discharge Instructions: Palpitations You will use the following diet at home:: Cardiac Your food should be the consistency of: Regular Your liquids should be the consistency of: Regular/Thin Discharge Activity: Return to Normal Activity Additional Instructions: Take note of your new medications. Continue to take all your medications. Follow-up with Dr. Larose within a week. Follow-up with your vascular surgeon, Dr. Jordyn Thomas. Allergies/Adverse Reactions: Allergies erythromycin base [From Staticin] Allergy (Verified 12/28/18 17:16) Other ethyl alcohol [From Staticin] Allergy (Verified 12/28/18 17:16) Other Sulfa (Sulfonamide Antibiotics) Allergy (Verified 12/28/18 17:16) Other Medications to take at Discharge Aspirin [Aspirin, Baby] 81 mg PO DAILY 02/26/14 Rosuvastatin Calcium [Crestor] 10 mg PO QHS 02/26/14 [place]-3 Fatty Acids/Fish Oil [Fish Oil 1,000 mg Capsule] 1 each PO DAILY 12/28/18 Methylcellulose [Citrucel] 1,000 mg PO DAILY 12/29/18 Carvedilol 6.25 mg PO BID #60 tab 12/30/18 Lisinopril [Zestril] 5 mg PO DAILY #30 tablet 01/01/19 The following prescriptions were given: Lisinopril [Zestril] 5 mg PO DAILY #30 tablet Carvedilol 6.25 mg PO BID #60 tab Primary Care Physician: Fabrizio Callahan MD [Primary Care Provider] - Please follow up with your Primary Care Physician in: within 1-2 weeks Test Results: Test results from this visit will be discussed in further detail at your follow-up appointment, if applicable. Please Follow Up With: Shubham Larose MD When: within 1-2 weeks When: Dr. Jordyn Thomas within 1-2 weeks Proposed Discharge Date: 12/30/18
[2019-01-01] MEDS: Omega-3 Acid Ethyl Esters 1 GM Capsule PO (11:00)
--- NOTE | 2019-01-01 11:01 | DCINST_ITS ---
- Discharge Diagnoses Current Active Problems: Current Active and Chronic Problems (Last Updated 12/28/18 @ 20:09 by Joseph Guido MD) Nonsustained ventricular tachycardia (Acute) Palpitations (Chronic) Reason(s) for Visit for Discharge Instructions: Palpitations You will use the following diet at home:: Cardiac Your food should be the consistency of: Regular Your liquids should be the consistency of: Regular/Thin Discharge Activity: Return to Normal Activity Additional Instructions: Take note of your new medications. Continue to take all your medications. Follow-up with Dr. Larose within a week. Follow-up with your vascular surgeon, Dr. Jordyn Thomas. Allergies/Adverse Reactions: Allergies erythromycin base [From Staticin] Allergy (Verified 12/28/18 17:16) Other ethyl alcohol [From Staticin] Allergy (Verified 12/28/18 17:16) Other Sulfa (Sulfonamide Antibiotics) Allergy (Verified 12/28/18 17:16) Other Medications to take at Discharge Aspirin [Aspirin, Baby] 81 mg PO DAILY 02/26/14 Rosuvastatin Calcium [Crestor] 10 mg PO QHS 02/26/14 [place]-3 Fatty Acids/Fish Oil [Fish Oil 1,000 mg Capsule] 1 each PO DAILY Methylcellulose [Citrucel] 1,000 mg PO DAILY 12/29/18 Carvedilol 6.25 mg PO BID #60 tab 12/30/18 Lisinopril [Zestril] 5 mg PO DAILY #30 tablet 01/01/19 The following prescriptions were given: Lisinopril [Zestril] 5 mg PO DAILY #30 tablet Carvedilol 6.25 mg PO BID #60 tab Primary Care Physician: Fabrizio Callahan MD [Primary Care Provider] - Please follow up with your Primary Care Physician in: within 1-2 weeks Test Results: Test results from this visit will be discussed in further detail at your follow- up appointment, if applicable. Please Follow Up With: Shubham Larose MD When: within 1-2 weeks When: Dr. Jordyn Thomas within 1-2 weeks Proposed Discharge Date: 12/30/18
--- NOTE | 2019-01-01 11:01 | PCM.DC.SUM ---
Discharge Date and Diagnosis - Problem List Patient Problems: Active and Suspected Problems (Last Updated 12/28/18 @ 20:09 by Joseph Guido MD) Nonsustained ventricular tachycardia (Acute) Date of Admission: 12/28/18 Date of Discharge: 01/01/19 - Primary Discharge Diagnosis Active and Suspected Problems (Last Updated 12/28/18 @ 20:09 by Joseph Guido MD) Nonsustained ventricular tachycardia (Acute) - Secondary Discharge Diagnosis Chronic Problems (Last Updated 12/28/18 @ 20:09 by Joseph Guido MD) Palpitations (Chronic) Hospital Course and Treatment Imaging Results: Clinical Impression(s) from Imaging Studies Chest X-Ray 12/28/18 17:20 IMPRESSION: No acute cardiopulmonary findings or changes. Negative for major consolidation, focal atelectasis, cardiomegaly or substantial pleural effusion. Hiatal hernia. Electronically Signed: Heather Pratt MD at 18:28 EST , Service support , Cardiology Operations: None Procedures: None Summary of Care Provided: The patient is a 68 year old F past medical history of hypertension, abdominal aortic aneurysm, CAD status post stent, hyperlipidemia who comes in with complaints of persistent palpitations that started 4 days before admission. Associated with some lightheadedness. Patient has chronic palpitations for which she follows with Dr. Yun. A day before her admission, patient was given an event monitor, and on the day of admission when she had palpitations, day event monitor captured 4 seconds of nonsustained V. tach. The cardiology office sent patient to the ED for further evaluation. In the emergency department, patient's vitals were stable, emergency physician discussed with Dr. Yun will recommend cardiac cath. Patient was admitted to telemetry bed. No events were seen on telemetry although she had episodes of reported palpitations. She was started on carvedilol. Her verapamil was stopped. Cardiology was consulted. Patient underwent a cardiac cath which showed 70% stenosis of RAD. There was some discrepancy concerning her ejection fraction. 2D echo showed EF of 47%, had a stress test showed an EF of 31%, and a cardiac cath showed an EF of 35%. It was recommended to be discharged on beta-blockers and ISA inhibitors. She will follow-up with her primary legislative correspondent as well as a vascular surgeon for further evaluation of abdominal aortic aneurysm. Patient Problems: Active and Suspected Problems (Last Updated 12/28/18 @ 20:09 by Joseph Guido MD) Nonsustained ventricular tachycardia (Acute) Subjective: On the day of discharge, patient had no complaints, she had gone for cardiac cath, was sleepy. Eyes any chest pain or dizziness or shortness of breath - Physical Exam General: Alert, Oriented x3, Cooperative, No apparent distress HEENT: Atraumatic, PERRLA, EOMI, Normocephalic Oral: Moist Mucosa Neck: Supple, No JVD, Negative Carotid Bruits Lungs: Clear to auscultation, Normal air movement Cardiovascular: Regular rate, Regular Rhythm, Normal S1, Normal S2, No murmurs Abdomen: Bowel Sounds Present, Soft, Non Tender, Non-Distended, No Hepato-splenomegaly Extremities: No edema, Capillary Refill Less than 3 Seconds Skin: No rashes, No breakdown Musculoskeletal: No Tenderness to Palpation of Joints or Extremities Lymphatic: No Cervical, Supraclavicular, or Inguinal Adenopathy Neurological: Cranial nerves II-XII grossly intact, Neuro grossly intact Psych/Mental Status: Normal Affect, Appropriate Vital Signs Temp Pulse Resp BP Pulse Ox 98.7 F 60 16 133/76 H 98 01/01/19 10:20 01/01/19 10:20 01/01/19 10:20 01/01/19 10:20 01/01/19 10:20 Oxygen Flow Rate (L/min) 2 Oxygen Delivery Method Room Air Weight: 59.6 kg Body Mass Index (BMI) 22.8 Intake and Output for Last 24 Hours 12/30/18 12/31/18 01/01/19 23:59 23:59 23:59 Intake Total 620 / 620 1280 / 1280 Output Total 3 / 3 Balance 620 / 620 1277 / 1277 Laboratory Tests Past 24 Hrs 12/31/18 01/01/19 01/01/19 20:20 05:00 05:00 WBC 5.2 RBC 4.34 Hgb 13.4 Hct 39.9 MCV 91.9 MCH 30.9 MCHC 33.6 RDW 12.4 RDW Differential 41.0 Plt Count 188 MPV 9.4 PT INR APTT Sodium 143 Potassium 3.9 Chloride 108 H Carbon Dioxide 26.0 Anion Gap 9 BUN 21 H Creatinine 0.91 Estim Creat Clear Calc 50.30 Est GFR (MDRD) Af Amer 80 Est GFR (MDRD) Non-Af 66 BUN/Creatinine Ratio 23.2 H Glucose 93 Calcium 8.6 Magnesium TSH Urine Color Straw Urine Clarity Clear Urine pH 6.0 Ur Specific [place] 1.010 Urine Protein Negative Urine Glucose (UA) Normal Urine Ketones Negative Urine Occult Blood 25 H Urine Nitrite Negative Urine Bilirubin Negative Urine Urobilinogen Normal Ur Leukocyte Esterase Negative Urine RBC 0 SEEN Urine WBC 0 SEEN Ur Squamous Epith Cells 0-5 SEEN Urine Bacteria 0 SEEN Urine Mucus 0 SEEN 01/01/19 01/01/19 05:00 05:00 WBC RBC Hgb Hct MCV MCH MCHC RDW RDW Differential Plt Count MPV PT 13.4 INR 1.0 APTT 28.3 Sodium Potassium Chloride Carbon Dioxide Anion Gap BUN Creatinine Estim Creat Clear Calc Est GFR (MDRD) Af Amer Est GFR (MDRD) Non-Af BUN/Creatinine Ratio Glucose Calcium Magnesium 1.8 TSH 2.94 Urine Color Urine Clarity Urine pH Ur Specific [place] Urine Protein Urine Glucose (UA) Urine Ketones Urine Occult Blood Urine Nitrite Urine Bilirubin Urine Urobilinogen Ur Leukocyte Esterase Urine RBC Urine WBC Ur Squamous Epith Cells Urine Bacteria Urine Mucus Discharge Diet: Low fat/ Low Cholesterol, 2000 mg Sodium Diet Discharge Activity: Return to Normal Activity Home Medications: Medications to take at Discharge Aspirin [Aspirin, Baby] 81 mg PO DAILY 02/26/14 Rosuvastatin Calcium [Crestor] 10 mg PO QHS 02/26/14 [place]-3 Fatty Acids/Fish Oil [Fish Oil 1,000 mg Capsule] 1 each PO DAILY 12/28/18 Methylcellulose [Citrucel] 1,000 mg PO DAILY 12/29/18 Carvedilol 6.25 mg PO BID #60 tab 12/30/18 Carvedilol [Coreg (Beta Marcela)] 6.25 mg PO BID #60 tablet 01/01/19 Losartan Potassium [Cozaar] 25 mg PO DAILY #30 tablet 01/01/19 Following Prescrptions Were Given to Patient: Losartan Potassium [Cozaar] 25 mg PO DAILY #30 tablet Carvedilol 6.25 mg PO BID #60 tab Carvedilol [Coreg (Beta Marcela)] 6.25 mg PO BID #60 tablet Primary Care Physician: Fabrizio Callahan MD [Primary Care Provider] - Please follow up with your Primary Care Physician in: within 1-2 weeks Please Follow Up With: Shubham Larose MD When: within 1-2 weeks When: Dr. Jordyn Thomas within 1-2 weeks Disposition: Home Minutes spent on discharge:: 40 Patient Condition:: Stable Medical Necessity - Tobacco Use Smoking Status: Never smoker Tobacco Use: Non-smoker Meaningful Use Info Meaningful Use Diagnoses (Choose all that apply): None applicable Code Visit Inpatient E&M: 79396 Disch Hosp
--- NOTE | 2019-01-02 14:37 | CASEMGMT ---
[facility] CM DC Phone Call DC DATE: 01/01/19 DC DISPOSITION: home LACE/STRATA: 07/24 Call to pt's home phone. No answer, no message machine. Rich MARES RN ACM
== END 2019-01-01 13:47 | disposition home or self-care (01) | DRG 287 ==
LOC: ED 19:34 → PCU 20:13
PROVIDERS: Internal Medicine Cardiovascular Disease; Admitting Provider Hospitalist; Emergency Provider Emergency Medicine; Family Provider Family Medicine; PCP Family Medicine; Visit Provider Internal Medicine
DX: I47.2 Ventricular tachycardia (principal); I10 Essential (primary) hypertension; E78.5 Hyperlipidemia, unspecified; I71.4 Abdominal aortic aneurysm, without rupture; I25.10 Atherosclerotic heart disease of native coronary artery without angina pectoris; Z95.5 Presence of coronary angioplasty implant and graft; I25.2 Old myocardial infarction
CPT/HCPCS: 36415; 71045; 75625; 78452; 80048; 81001; 83735; 84443; 84484; 85025; 85027; 85610; 85730; 93005; 93017; 93306; 93458; 99152; 99153; 99283; A9500; C1760; J7040; Q9967; A4216; C1769; J2785

== ENCOUNTER → 2019-08-09 09:40 | Outpatient (CLI) | payer MEDICARE, OTHER, SELFPAY ==
[2019-08-01 08:05] VITALS: BMI 23.5
== END ==
PROVIDERS: Family Provider Family Medicine; PCP Family Medicine; Referring Provider Internal Medicine Cardiovascular Disease; Visit Provider Internal Medicine Cardiovascular Disease
DX: I47.2 Ventricular tachycardia (principal)
CPT/HCPCS: 93225; 93226

== ENCOUNTER → 2019-08-17 09:36 | Outpatient (CLI) | payer MEDICARE, OTHER, SELFPAY ==
[2019-08-01 08:05] VITALS: BMI 23.5
--- NOTE | 2019-08-17 09:38 | ECHOD_ITS ---
Reason For Study: NSVT Procedure This was a 2D Doppler, Color Flow transthoracic echocardiogram. Exam performed in department. Left Ventricle Normal LV size. The estimated ejection fraction is 40 %. Mild to moderate segmental systolic dysfunction (see wall motion). Stage 2 diastolic dysfunction. Posterior-Basal: Akinetic. Infero- Basal: Akinetic. Mid-Inferior: Hypokinetic. Mid-Posterior: Akinetic. Mid-inferoseptal : Hypokinetic. Mid-Lateral : Hypokinetic. The rest of the wall segments are normal. Right Ventricle Normal RV size. Normal systolic function. Atria The left atrium is mildly enlarged. Normal right atrium. Mitral Valve Bileaflet diffuse mitral valve thickening. Mild-Moderate (1-2+) eccentric mitral valve insufficiency. Tricuspid Valve Normal tricuspid valve. Mild (1+) tricuspid valve insufficiency. Pulmonary artery systolic pressure is 30 mmHg. Aortic Valve Trisinus/trileaflet aortic valve. Mild focal aortic valve calcification. Mild (1+) aortic valve insufficiency. Pulmonic Valve Normal pulmonic valve. Great Vessels Normal aortic root. The pulmonary artery is normal size. Normal inferior vena cava. Pericardium/Pleural No pericardial effusion. MMode/2D Measurements & Calculations LVIDd: 5.5 cm IVSd: 0.88 cm Ao root diam: 3.1 cm LVIDs: 4.6 cm LVPWd: 0.65 cm RVDd: 2.7 cm FS: 16.5 % LAV(MOD-bp): 54.9 ml LA A4 area: 21.7 cm2 LA dimension(2D): 3.5 cm LAV(MOD-bp) Indexed: 33.3 ml/m2 LAV(MOD-sp2): 41.2 ml LAV(MOD-sp4): 69.3 ml RA A4 area: 13.1 cm2 Time Measurements MV dec time: 0.16 sec Doppler Measurements & Calculations MV E max fidel: 82.0 cm/sec Lat Peak E' Fidel: 6.8 cm/sec Med Peak E' Fidel: 4.5 cm/sec MV A max fidel: 66.5 cm/sec E/E' lat: 12.1 E/E' med: 18.1 MV E/A: 1.2 Ao V2 max: 123.6 cm/sec AI max fidel: 328.3 cm/sec LV V1 max: 77.8 cm/sec Ao max P.2 mmHg AI max P.1 mmHg LV V1 max P.4 mmHg Ao V2 mean: 94.2 cm/sec AI dec slope: 123.4 cm/sec2 LV V1 mean P.3 mmHg Ao mean P.8 mmHg AI P1/2t: 779.2 msec LV V1 mean: 54.7 cm/sec Ao V2 VTI: 30.0 cm LV V1 VTI: 19.3 cm PA V2 max: 80.3 cm/sec TR max fidel: 253.8 cm/sec MV P1/2t-pr_phl: 89.9 msec TR max P.8 mmHg Interpretation Summary Normal LV size. The estimated ejection fraction is 40 %. Mild to moderate segmental systolic dysfunction (see wall motion). Stage 2 diastolic dysfunction. Mild-Moderate (1-2+) eccentric mitral valve insufficiency. Mild (1+) tricuspid valve insufficiency. Mild (1+) aortic valve insufficiency. Compared to previous study, the left ventricular systolic function is the same.. Ordering Physician: Edmar Parrish Referring Physician: Fabrizio Callahan Performed By: Cortney Reis, LEONEL, RVT
== END ==
PROVIDERS: Family Provider Family Medicine; PCP Family Medicine; Referring Provider Internal Medicine Cardiovascular Disease; Visit Provider Internal Medicine Cardiovascular Disease
DX: I47.2 Ventricular tachycardia (principal)
CPT/HCPCS: 93306

== ENCOUNTER 2020-08-20 20:39 | Emergency (ER) | payer MEDICARE, OTHER, SELFPAY ==
[2020-06-24 15:56] VITALS: BMI 23.5
[2020-08-20 20:39] VITALS: BP 152/90; PULSE 91; RESP 16; TEMP 37.6; O2SAT 95; BMI 24.3
--- NOTE | 2020-08-20 21:08 | EKG12_ITS ---
Test Reason : DYSRHYTHMIA Blood Pressure : / mmHG Vent. Rate : 090 BPM Atrial Rate : 090 BPM P-R Int : 150 ms QRS Dur : 104 ms QT Int : 364 ms P-R-T Axes : 058 001 072 degrees QTc Int : 445 ms Sinus rhythm with occasional Premature ventricular complexes Inferior-posterior infarct , age undetermined Abnormal ECG Confirmed by SEAN GENAO, VIOLA ([id number]), makeup editor PRAVEEN CLAY ([id number]) on 08/25/2020 2:16:44 PM Referred By: BEATRIZ Confirmed By:VIOLA ESTRADA MD
--- NOTE | 2020-08-20 21:08 | ED.VIS.GEN ---
History of Present Illness Chief Complaint: Fever Informant: Patient Narrative: 69-year-old female presenting with cough, fever, diarrhea. She states that she started feeling ill 7 days ago with a cough. She has had fevers as high as 102. She states she had a fever prior to leaving her house this evening but Tylenol and it has resolved. She denies any chest pain. She states that her cough keeps her up at night but she does not have severe dyspnea. She does not have nausea or vomiting. She states that her daughter had COVID?19 and before she knew it she exposed her mother. Her daughter is currently on day 12. Patient states that her only has minor symptoms and he is doing well. 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 Status: Chronic Comment: ST elevation (STEMI) myocardial infarction involving left circumflex coronary artery 05/2008 (3) Chronic combined systolic and diastolic CHF (congestive heart failure) Status: Chronic (4) Non-rheumatic mitral regurgitation Status: Chronic (5) Paroxysmal supraventricular tachycardia Status: Chronic (6) Nonsustained ventricular tachycardia Status: Chronic Past Medical History - Allergies and Home Meds Allergies/Adverse Reactions: Allergies erythromycin base [From Staticin] Allergy (Verified 08/20/20 20:41) Other ethyl alcohol [From Staticin] Allergy (Verified 08/20/20 20:41) Other Sulfa (Sulfonamide Antibiotics) Allergy (Verified 08/20/20 20:41) Other lisinopril Adverse Reaction (Verified 08/20/20 20:41) cough niacin Adverse Reaction (Verified 08/20/20 20:41) GI Upset [id number] Reductase Inhibitor Adverse Reaction (Verified 08/20/20 20:41) GI Upset Primary Care Physician: Fabrizio Callahan MD [Primary Care Provider] - Past Medical History: - - Reviewed in problem list Surgical History: - - Coronary stents Lives: Spouse/ Significant Other Smoking Status: Never smoker Alcohol: None Drugs: None - Family History Maternal Family History: Family History (Last Reviewed 06/24/20 @ 16:[address] Edmar Parrish MD) Mother CAD (coronary artery disease) Heart disease Myocardial infarction Hypertension Diabetes Father AAA Hypertension Sister Hypertension Brother Heart disease CAD (coronary artery disease) Hypertension Family History: Reports: Diabetes, Heart Disease Paternal Family History: Family History (Last Reviewed 06/24/20 @ 16:[address] Edmar Parrish MD) Mother CAD (coronary artery disease) Heart disease Myocardial infarction Hypertension Diabetes Father AAA Hypertension Sister Hypertension Brother Heart disease CAD (coronary artery disease) Hypertension Family History: Reports: - - Aortic Aneursym Review of Systems General: Reports: Chills, Fever, Malaise Eyes: Denies: Visual changes - bilaterally, Diplopia ENT: Denies: Rhinorrhea, Sore throat Cardiovascular: Denies: Chest pain, Palpitations, Heart racing Respiratory: Reports: Cough, Sputum Gastrointestinal: Reports: Diarrhea. Denies: Abdominal pain, Vomiting Genitourinary: Denies: Dysuria, Hematuria Musculoskeletal: Reports: Myalgias. Denies: Arthralgias Skin: Denies: Rash, Abscess Neurological: Reports: Numbness. Denies: Headache, Parasthesia Physical Exam Vital Signs/Narrative: Vital Signs Temp Pulse Resp BP Pulse Ox 08/20/20 20:39 99.6 F H 91 16 152/90 H 95 Inital Vital Signs reviewed: Yes General: Well nourished, No Acute Distress Head: Normocephalic, Atraumatic Eyes: Perrl, EOMI ENT: Moist mucous membranes Cardiovascular: Regular rate, Regular rhythm Respiratory: No distress, - - Right basilar crackles otherwise good air movement. Wheezing. Abdomen: Soft, Nontender Extremities: Nontender, No edema Skin: Normal color, No rash Neurological: Alert, Oriented x3 Psychological: Normal affect, Normal Mood Diagnostic/Tx/Re-eval Clinical Impression(s) from Imaging Studies Chest X-Ray 08/20/20 21:25 IMPRESSION: Moderate hiatal hernia. No acute chest disease. Electronically Signed: Juan David Russ MD at 21:41 EDT , Service support , Laboratory Data 08/20/20 08/20/20 08/20/20 22:15 22:15 22:15 WBC 3.6 L RBC 4.08 L Hgb 12.6 Hct 37.7 MCV 92.4 MCH 30.9 MCHC 33.4 RDW Std Deviation 42.3 RDW Coeff of Marielos 12.5 Plt Count 127 L MPV 9.7 Immature Gran % (Auto) 0.300 Neut % (Auto) 69.5 Lymph % (Auto) 17.7 L [place] % (Auto) 12.2 H Eos % (Auto) 0.0 Baso % (Auto) 0.3 Absolute Neuts (auto) 2.5 Absolute Lymphs (auto) 0.64 L Nucleated RBC % 0 Sodium 138 Potassium 3.9 Chloride 106 Carbon Dioxide 27.0 Anion Gap 5 BUN 14 Creatinine 0.95 Estim Creat Clear Calc 47.54 Est GFR (MDRD) Af Amer 75 Est GFR (MDRD) Non-Af 62 BUN/Creatinine Ratio 14.7 Glucose 121 H Calcium 8.6 Total Bilirubin 0.30 AST 31 ALT 20 Alkaline Phosphatase 64 Troponin I < 0.015 Total Protein 7.2 Albumin 3.3 Globulin 3.9 Albumin/Globulin Ratio 0.8 L Procalcitonin 0.09 - Medical Decision Making Patient presents after 7 days of intermittent fever and cough. She states that she has been able to eat and drink. Her vital signs are stable and she is afebrile. She is not hypoxic. Her chief complaint is of cough. Denies any chest pain. Lab work is consistent with viral illness. Procalcitonin is negative. Chest x-ray is negative. Given lab work and imaging as well as normal vital signs I do not believe the patient needs to be admitted to the hospital. Quarantine at home. She is given strict return precautions for any new or worsening symptoms. Patient stable for discharge at this time. Impression: 1. Possible exposure to COVID?19 2. Viral syndrome ED Disposition - Plan for ED Patient: Disposition: Home or Assisted Living Instructions: ED Viral Syndrome Referrals: Fabrizio Callahan MD [Primary Care Provider] -
--- NOTE | 2020-08-20 21:25 | RAD_ITS ---
STUDY: X-RAY CHEST REASON FOR EXAM: Female, 69 years old. COMPLAINS OF FEVER T-MAX 102, COUGH, DIARRHEA. DAUGHTER POSITIVE FOR COVID. TECHNIQUE: Single AP portable view of the chest. COMPARISON: 12/28/2018. FINDINGS: The lungs are clear and expanded. There is no demonstrated pleural abnormality. Normal size heart. Normal mediastinum and michaela. Normal visualized pulmonary arteries. There is atherosclerotic calcification of the aortic arch with tortuosity. Moderate hiatal hernia. Normal visualized thoracic spine. Normal visualized ribs, clavicles, and shoulders. There is no demonstrated acute abnormality of the visualized soft tissue structures of the upper abdomen. RAD/Chest 1 View (Portable) IMPRESSION: Moderate hiatal hernia. No acute chest disease. Electronically Signed: Juan David Russ MD at 21:41 EDT , Service support ,
[2020-08-20 22:27] VITALS: BP 158/98; PULSE 89; RESP 18; RESP 20; TEMP 37.4; O2SAT 93; O2SAT 94; O2SAT 95
[2020-08-20 22:27] LABS: Absolute Lymphocyte Count 0.64 X10^3/uL (0.83-4.51); Absolute Neutrophil Count 2.5 X10^3/uL (2.0-7.7); Basophil# 0.01 X10^3/uL; Basophil% 0.3 % (0-1); Hematocrit 37.7 % (37-47); Hemoglobin 12.6 g/dL (12.0-15.0); Lymphocyte # 0.64 X10^3/ul (4.0); Lymphocyte % 17.7 % (19-41); Mean Corp Hgb Conc 33.4 g/dL (32-36); Mean Corpuscular Hgb 30.9 pg (27.0-32.0); Mean Corpuscular Volume 92.4 fL (81-99); Mean Platelet Vol. 9.7 fl (6.2-12.0); Monocyte# 0.44 X10^3/uL; Monocyte% 12.2 % (0-10); NRBC Flagged by Analyzer 0 % (0-5); Neutrophil # 2.52 X10^3/uL (2.7-7.7); Neutrophil % 69.5 % (47-70); Platelet Count 127 K/mm3 (150-450); RBC Distribution Width CV 12.5 % (11.6-14.6); RBC Distribution Width SD 42.3 fl (35.1-43.9); Red Blood Count 4.08 M/mm3 (4.2-5.4); White Blood Count 3.6 K/mm3 (4.4-11.0)
[2020-08-20 22:48] LABS: ALB/GLOB Ratio 0.8 RATIO (0.9-2.4); AST(SGOT) 31 U/L (15-37); Alanine Aminotransfer ALT/SGPT 20 U/L (13-56); Albumin, Serum 3.3 g/dL (3.2-5.0); Alkaline Phosphatase 64 U/L (45-117); Anion Gap 5 (5-15); BUN 14 mg/dL (7-18); BUN/Creat Ratio 14.7 RATIO (10-20); Calcium,Total 8.6 mg/dL (8.5-10.1); Chloride 106 mmol/L (98-107); Creatinine, Serum 0.95 mg/dL (0.55-1.02); EST Glomerular Filtration Rate 62 mL/min (>60); Est Glom Filt Rate - Afr Amer 75 mL/min (>60); Estimated Creatinine Clearance 47.54 ml/min; Globulin 3.9 g/dL (2.2-4.2); Glucose 121 mg/dL (74-106); Potassium 3.9 mmol/L (3.5-5.1); Protein, Total 7.2 g/dL (6.4-8.2); Sodium Level 138 mmol/L (136-145)
[2020-08-20 22:52] LABS: Procalcitonin 0.09 ng/mL (0.00-0.09)
[2020-08-20 23:02] LABS: Lactic Acid 0.7 mmol/L (0.4-1.9)
[2020-08-20 23:04] VITALS: BP 152/91; PULSE 88; RESP 16; TEMP 37.3; O2SAT 94
--- NOTE | 2020-08-21 00:09 | ED.RN ---
Patient contacted with positive covid results. Patient to contact health department and remain in quarantine at this time
== END 2020-08-20 23:16 | disposition home or self-care (01) ==
PROVIDERS: Emergency Provider Student in an Organized Health Care Education/Training Program; PCP Family Medicine
DX: B34.9 Viral infection, unspecified (principal); I25.10 Atherosclerotic heart disease of native coronary artery without angina pectoris; I25.2 Old myocardial infarction; I50.42 Chronic combined systolic (congestive) and diastolic (congestive) heart failure; Z95.5 Presence of coronary angioplasty implant and graft; Z79.82 Long term (current) use of aspirin
CPT/HCPCS: 71045; 80053; 83605; 84145; 84484; 85025; 87633; 87635; 93005; 99284; A4216; U0003

== ENCOUNTER → 2021-07-09 06:33 | Outpatient (CLI) | payer MEDICARE, OTHER, SELFPAY ==
[2021-06-26 10:35] VITALS: BMI 23.6
--- NOTE | 2021-07-09 06:41 | ECHOD_ITS ---
Reason For Study: Pre-op clearance, CAD, Isch CMP Procedure This was a 2D Doppler, Color Flow transthoracic echocardiogram. Exam performed in department. Left Ventricle Normal LV size. The estimated ejection fraction is 40 %. Moderate segmental systolic dysfunction (see wall motion). Posterior-Basal: Akinetic. Mid-Posterior: Akinetic. Infero-Basal: Akinetic. Mid- Inferior: Hypokinetic. Mid-Lateral : Hypokinetic. Right Ventricle Normal RV size. Normal systolic function. Atria The left atrium is mildly enlarged. Normal right atrium. Mitral Valve Bileaflet diffuse mitral valve thickening. Mild (1+) eccentric mitral valve insufficiency. Tricuspid Valve Normal tricuspid valve. Mild (1+) tricuspid valve insufficiency. Pulmonary artery systolic pressure is 28 mmHg. Aortic Valve Normal aortic valve. Trisinus/trileaflet aortic valve. Pulmonic Valve Normal pulmonic valve. Great Vessels Normal aortic root. The pulmonary artery is normal size. Normal inferior vena cava. Pericardium/Pleural No pericardial effusion. MMode/2D Measurements & Calculations LVIDd: 5.2 cm IVSd: 0.76 cm Ao root diam: 3.1 cm LVIDs: 4.8 cm LVPWd: 0.77 cm RVDd: 2.9 cm FS: 7.8 % LAV(MOD-bp): 62.9 ml LVAd ap4: 32.4 cm2 LVAd ap2: 29.3 cm2 LAV(MOD-bp) Indexed: 38.7 ml/m2 LVLd ap4: 7.3 cm LVLd ap2: 7.1 cm LAV(MOD-sp2): 45.8 ml EDV(MOD-sp4): 116.1 ml EDV(MOD-sp2): 102.2 ml LAV(MOD-sp4): 77.2 ml EDV(sp4-el): 121.5 ml EDV(sp2-el): 102.2 ml LVAs ap4: 23.3 cm2 LVAs ap2: 21.8 cm2 LVLs ap4: 6.5 cm LVLs ap2: 6.6 cm ESV(MOD-sp4): 69.1 ml ESV(MOD-sp2): 62.7 ml ESV(sp4-el): 70.5 ml ESV(sp2-el): 61.6 ml EF(MOD-sp4): 40.5 % EF(MOD-sp2): 38.6 % EF(sp4-el): 42.0 % SV(MOD-sp4): 47.1 ml SV(MOD-sp2): 39.4 ml SV(sp4-el): 51.0 ml LA dimension(2D): 3.7 cm LA A4 area: 23.4 cm2 RA A4 area: 12.6 cm2 Doppler Measurements & Calculations MV E max fidel: 95.9 cm/sec Lat Peak E' Fidel: 9.1 cm/sec Med Peak E' Fidel: 4.1 cm/sec MV A max fidel: 68.4 cm/sec E/E' lat: 10.5 E/E' med: 23.2 MV E/A: 1.4 Ao V2 max: 168.2 cm/sec LV V1 max: 106.1 cm/sec PA V2 max: 75.8 cm/sec Ao max P.3 mmHg LV V1 max P.5 mmHg TR max fidel: 248.0 cm/sec TR max P.6 mmHg ECHO/Echo Complete Interpretation Summary Normal LV size. The estimated ejection fraction is 40 %. Pulmonary artery systolic pressure is 28 mmHg. Moderate segmental systolic dysfunction (see wall motion). Compared to previous study, the left ventricular systolic function is the same. . Ordering Physician: Karolina Chou/Edmar Parrish Referring Physician: MD Sindy Fabrizio Performed By: Isamar Ji, LEONEL
--- NOTE | 2021-07-09 16:11 | STRESSREP ---
Stress Test Report Exercise myocardial perfusion stress test. 70-year-old lady with a history of coronary artery disease for preoperative evaluation. Stress protocol: Resting EKG demonstrates normal sinus rhythm with rate of 63 bpm evidence of a previous inferior infarct is noted. Occasional premature ventricular complexes noted. The patient exercised according to regular Spencer protocol for total duration of 7 minutes patient completed 1 minute into stage III of the Spencer protocol. The maximum heart rate attained was 142 bpm which was 93% of max impact her heart rate the maximum workload was 10.1 metabolic equivalents. At rest there were no ST changes noted to suggest ischemia and at peak exercise no ST changes were noted to suggest ischemia. No clinical angina was noted the test was terminated due to the target heart rate being achieved. The resting blood pressure was 158/90 mmHg with a peak blood pressure of 182/98 mmHg. Myocardial perfusion protocol. 11.0 mCi of technetium 99m sestamibi was injected at rest. The patient exercised according to regular Spencer protocol and at peak exercise 33.4 mCi of technetium 99m sestamibi was injected stress images were obtained stress and rest images were reconstructed and compared in the short axis vertical long and horizontal long axis. Gated images were also obtained for Perfusion SPECT analysis: Review of the stress images demonstrate a normal cardiac silhouette size. There is a large defect noted involving the inferolateral region on the stress images present. The rest of the hall appear to be normally perfused. The resting images demonstrate a similar defect suggestive of a previous inferolateral infarct. No ischemia is noted. Gated SPECT analysis: The gated ejection fraction is 37%. Conclusion: Ischemic cardiomyopathy present. Exercise myocardial perfusion stress test with no evidence of ischemia noted at a high workload. Previous inferolateral infarct noted.
== END ==
PROVIDERS: PCP Family Medicine; Referring Provider Physician Assistant Medical; Visit Provider Physician Assistant Medical
DX: I47.2 Ventricular tachycardia (principal); I25.10 Atherosclerotic heart disease of native coronary artery without angina pectoris
CPT/HCPCS: 78452; 93017; 93306; A9500; A4216

== ENCOUNTER → 2022-07-28 | Outpatient (CLI) | payer MEDICARE, OTHER, SELFPAY ==
--- NOTE | 2022-07-28 13:38 | ECHOD_ITS ---
Reason For Study: OTHER Procedure This was a 2D Doppler, Color Flow transthoracic echocardiogram. Exam performed in department. Left Ventricle Normal LV size. The estimated ejection fraction is 40 %. Moderate segmental systolic dysfunction (see wall motion). Infero-Basal: Akinetic. Mid-Inferior: Akinetic. Mid-Lateral : Hypokinetic. Lateral [place] : Hypokinetic. Posterior-Basal: Akinetic. Mid-Posterior: Hypokinetic. Right Ventricle Normal RV size. Normal systolic function. Atria The left atrium is moderately enlarged. The right atrium is mildly enlarged. Mitral Valve Bileaflet diffuse mitral valve thickening. Mild-Moderate (1-2+) eccentric mitral valve insufficiency. Tricuspid Valve Normal tricuspid valve. Mild tricuspid valve insufficiency. Pulmonary artery systolic pressure is 33 mmHg. Aortic Valve Trisinus/trileaflet aortic valve. Mild focal aortic valve thickening. Mild (1+) aortic valve insufficiency. Pulmonic Valve Normal pulmonic valve. Great Vessels Normal aortic root. The pulmonary artery is normal size. Normal inferior vena cava. Pericardium/Pleural No pericardial effusion. MMode/2D Measurements & Calculations LVIDd: 5.3 cm IVSd: 1.3 cm LVOT diam: 2.0 cm LVIDs: 4.4 cm LVPWd: 1.3 cm LVOT area: 3.2 cm2 RVDd: 3.4 cm FS: 16.7 % Ao root diam: 2.9 cm LAV(MOD-bp): 95.5 ml LVAd ap4: 33.6 cm2 LAV(MOD-bp) Indexed: 58.5 ml/m2 LVLd ap4: 7.5 cm LAV(MOD-sp2): 90.4 ml EDV(MOD-sp4): 127.1 ml LAV(MOD-sp4): 96.7 ml EDV(sp4-el): 127.9 ml LVAs ap4: 22.7 cm2 LVLs ap4: 6.3 cm ESV(MOD-sp4): 69.9 ml ESV(sp4-el): 69.4 ml EF(MOD-sp4): 45.0 % EF(sp4-el): 45.7 % SV(MOD-sp4): 57.2 ml SV(sp4-el): 58.4 ml LA A4 area: 27.3 cm2 LA dimension(2D): 3.8 cm RA A4 area: 16.0 cm2 Time Measurements MV dec time: 0.07 sec Doppler Measurements & Calculations MV E max fidel: 83.0 cm/sec Lat Peak E' Fidel: 6.9 cm/sec Med Peak E' Fidel: 3.0 cm/sec MV A max fidel: 63.6 cm/sec E/E' lat: 12.0 E/E' med: 27.9 MV E/A: 1.3 MV V2 max: 85.4 cm/sec Ao V2 max: 163.3 cm/sec MV max P.9 mmHg MV dec slope: 1201 cm/sec2 Ao max P.7 mmHg MV V2 mean: 59.6 cm/sec Ao V2 mean: 115.4 cm/sec MV mean P.5 mmHg Ao mean P.0 mmHg MV V2 VTI: 32.0 cm Ao V2 VTI: 39.3 cm MVA(VTI): 2.4 cm2 BRYAN(I,D): 2.0 cm2 BRYAN(V,D): 2.0 cm2 AI max fidel: 493.3 cm/sec LV V1 max: 99.3 cm/sec MR max fidel: 641.0 cm/sec AI max P.5 mmHg LV V1 max P.0 mmHg MR max P.4 mmHg LV V1 mean P.1 mmHg MR mean fidel: 475.1 cm/sec AI dec slope: 287.1 cm/sec2 LV V1 mean: 66.7 cm/sec MR mean P.6 mmHg AI P1/2t: 503.2 msec LV V1 VTI: 23.8 cm MR VTI: 256.8 cm SV(LVOT): 77.0 ml PA V2 max: 86.2 cm/sec TR max fidel: 273.8 cm/sec PA V2 mean: 63.2 cm/sec TR max P.0 mmHg ECHO/Echo Complete Interpretation Summary Normal LV size. The estimated ejection fraction is 40 %. Moderate segmental systolic dysfunction (see wall motion). Infero-Basal: Akinetic. The left atrium is moderately enlarged. Mild (1+) aortic valve insufficiency. Pulmonary artery systolic pressure is 33 mmHg. Compared to previous study, the left ventricular systolic function is the same. . Ordering Physician: Edmar Parrish Referring Physician: Edmar Parrish Performed By: Shaylee Roberts RCS
== END | disposition home or self-care (01) ==
LOC: CVS 13:38
PROVIDERS: PCP Family Medicine; Referring Provider Internal Medicine Cardiovascular Disease; Visit Provider Internal Medicine Cardiovascular Disease
DX: I47.2 Ventricular tachycardia (principal)
CPT/HCPCS: 93306

== ENCOUNTER 2022-10-19 15:14 | Emergency (ER) | payer MEDICARE, OTHER, SELFPAY ==
[2022-10-19 15:15] VITALS: BP 174/108; PULSE 71; RESP 16; TEMP 36.3; O2SAT 98; BMI 23.6
--- NOTE | 2022-10-19 15:57 | CT_ITS ---
INDICATION: abd pain -- H/O AAA stent EXAMINATION: CTA Chest and CTA Abdomen and Pelvis W/ Contrast Injection (and W/O Contrast Images if performed) TECHNIQUE: Images were obtained of the chest, abdomen and pelvis following IV contrast. A radiation dose optimization technique was used for this scan. IV Contrast dosage and agent: IV 100mL [id number] COMPARISON: None. FINDINGS: Lungs: 7 mm solid pulmonary nodule in the periphery of the lingula. Left basilar atelectasis. Mediastinum: The cardiomediastinal silhouette is not enlarged. No mediastinal, hilar or axillary adenopathy. Mild aortic arch and coronary artery calcifications. No obvious filling defect seen within the visualized pulmonary arteries. Pleura: Unremarkable Liver: Diffusely hypodense consistent with fatty liver. Gallbladder: Unremarkable Spleen: Unremarkable Pancreas: Unremarkable Adrenal Glands: Unremarkable Kidneys: Unremarkable Vasculature: Severe aortoiliac atherosclerotic disease. 3.5 cm infrarenal abdominal aortic aneurysm with postsurgical changes status post aortobiiliac graft placement. No definite evidence of endoleak. GI Tract: Large hiatal hernia. Lymphadenopathy: None Peritoneum: No ascites. There is a 2.7 cm focal oval shaped area of fat with surrounding stranding just anterior to the abdominal aorta at the level of the kidneys. Bladder: Unremarkable Reproductive organs: Unremarkable Bones/Soft tissues: There are diffuse degenerative changes of the spine. Grade 1 retrolisthesis L2 on L3. CT/CTA Chst, Abd, Pel W and/or WO IMPRESSION: 3.5 cm infrarenal abdominal aortic aneurysm with postsurgical changes status post aortobiiliac graft placement. No evidence of rupture. Small focal area of omental infarction anterior to the aneurysm. Recommend correlation with any prior outside CT films. Large hiatal hernia, increased in size and extent when compared to most recent prior chest CT on 12/05/2018. This is the most likely cause of patient''s symptoms. 7 mm solid pulmonary nodule in the periphery of the lingula. Per Fleischner criteria, recommend follow-up low-dose chest CT without contrast in 12 months. Fatty liver. Electronically Signed: Eliud Lu MD at 18:40 EST ,
--- NOTE | 2022-10-19 15:59 | EX.ED.DYSGE1 ---
HPI History of Present Illness Chief Complaint: Abd Pain Informant: patient Onset/Context/Timing Onset: Yesterday Current Severity: Mild Maximum Severity: Moderate Narrative Narrative: Patient presents secondary to abdominal pain. She states after her noon meal yesterday she felt a very full sensation and had pain in the epigastric and left upper quadrant region. She did not eat last evening and pain finally subsided. She was able to pass gas and have a bowel movement during this episode. Today after eating lunch she had similar complaints. She tried taking Tums which caused her to vomit. She still has some pain but it is improved compared to prior. She is concerned because she has a stent for a AAA in the general area of where her pain is. She has not had fever or chills. 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 Paroxysmal supraventricular tachycardia Peripheral vascular disease ST elevation (STEMI) myocardial infarction involving left circumflex coronary artery (05/2008) 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) Home Medications aspirin 81 mg chewable tablet 81 mg PO DAILY HEART HEALTH 02/26/14 [History Last Taken 12/28/18] omega-3 fatty acids-fish oil 340 mg-1,000 mg capsule 1 ea PO DAILY SUPPLEMENT 12/28/18 [History Last Taken 12/28/18] methylcellulose (laxative) 500 mg tablet 1,000 mg PO DAILY 12/29/18 [History Last Taken Unknown] carvedilol 12.5 mg tablet 12.5 mg PO BID 07/24/19 [History Last Taken Unknown] cholecalciferol (vitamin D3) 10 mcg (400 unit) tablet (Vitamin D3) 400 unit PO DAILY 07/24/19 [History Last Taken Unknown] nitroglycerin 0.4 mg sublingual tablet 0.4 mg sublingual Q5-15M 07/24/19 [History Last Taken Unknown] candesartan 8 mg tablet 8 mg PO DAILY #90 tabs 07/01/22 [Rx Last Taken Unknown] lactobacillus combination no.9 4 billion cell capsule (Adult 50 Plus Probiotic) 4,000 mmu cells PO DAILY 07/01/22 [History Last Taken Unknown] rosuvastatin 10 mg tablet 10 mg PO QHS CHOLESTEROL LOWERING #90 tabs 07/01/22 [Rx Last Taken Unknown] metoclopramide HCl 10 mg tablet (Reglan) 10 mg PO Q6H PRN nausea and vomiting #20 tabs 10/19/22 [Rx Last Taken Unknown] Allergy/AdvReac Type Severity Reaction Status Date / Time erythromycin base Allergy Other Verified 10/19/22 15:17 [From Staticin] ethyl alcohol [From Staticin] Allergy Other Verified 10/19/22 15:17 Sulfa (Sulfonamide Allergy Other Verified 10/19/22 15:17 Antibiotics) lisinopril AdvReac cough Verified 10/19/22 15:17 niacin AdvReac GI Upset Verified 10/19/22 15:17 Qjmnaam-OVS-NbS Reductase AdvReac GI Upset Verified 10/19/22 15:17 Inhibitor [Aldjnrt-Yll-Qfq Reductase Inhibitor] Family History Mother CAD (coronary artery disease) Heart disease Myocardial infarction Hypertension Diabetes Father AAA from rupture Hypertension Sister Hypertension Brother Heart disease CAD (coronary artery disease) CABG age 78 Hypertension Surgical History H/O endovascular stent graft for abdominal aortic aneurysm (04/25/19) History of coronary artery stent placement (05/2008) History of left heart catheterization (01/01/19) Social History Smoking Status: Never smoker ROS ROS ED Constitutional Constitutional ED: Denies chills or fever(s) Eyes Eyes: Denies change in vision or discharge from eye(s) ENT ENT ED: Denies discharge from eye(s), rhinorrhea or sore throat Cardiovascular Cardiovascular: Denies chest pain or palpitations Respiratory/Chest Respiratory/Chest: Denies cough or dyspnea Gastrointestinal Gastrointestinal: Reports abdominal pain, nausea and vomiting; Denies diarrhea Genitourinary Genitourinary ED: Denies dysuria Musculoskeletal Musculoskeletal: Denies back pain or extremity pain Integumentary Denies Abrasions or rash Neurologic Neurologic: Denies headache(s) or weakness Psychiatric Psychiatric: Denies anxiety or depression Allergic/Immunologic Allergic/Immunologic ED: Denies lip swelling or urticaria EXAM Physical Exam Const Vital Signs: 10/19/22 15:15 10/19/22 18:37 Temperature 97.3 F L Temperature Source Temporal Pulse Rate 71 Respiratory Rate 16 Blood Pressure 174/108 H 157/82 H Blood Pressure Mean 130 107 Pulse Ox 98 Oxygen Delivery Method Room Air Positive well nourished and well developed General Appearance ED: well developed HEENT Reports normocephalic and head/scalp atraumatic Eyes PERRL and EOMs intact bilaterally Neck supple Chest Wall inspection of chest normal and palpation of chest normal Resp normal respiratory effort and clear to auscultation bilaterally Cardio regular rate and regular rhythm GI GI Narrative: Mild epigastric tenderness outpatient. No guarding or rebound. Hypoactive bowel sounds. No pulsatile masses noted. Palpation: soft Back/Spine no CVA tenderness Extremity normal to inspection Neuro oriented x3 and no sensory deficits noted Sensorium / Orientation: alert Motor Exam: strength 5/5 throughout Psych mental status grossly normal Skin no rashes or lesions noted MDM MDM MDM Narrative Medical decision making narrative: Lab work obtained along with CTA of the chest, abdomen, and pelvis. EKG ordered. Patient was initially ordered nausea medicine and IV fluid which she declined. She declined pain medication as well. Lab Data Attestation: I reviewed the patient's lab results. Labs: Laboratory Results - last 24 hr 10/19/22 10/19/22 15:55 15:55 WBC 8.8 RBC 3.94 L Hgb 12.2 Hct 36.3 L MCV 92.1 MCH 31.0 MCHC 33.6 RDW Std Deviation 43.4 RDW Coeff of Marielos 12.8 Plt Count 194 MPV 9.4 Immature Gran % (Auto) 0.200 Neut % (Auto) 77.6 H Lymph % (Auto) 10.0 L [place] % (Auto) 8.5 Eos % (Auto) 2.9 Baso % (Auto) 0.8 Absolute Neuts (auto) 6.9 Absolute Lymphs (auto) 0.88 Nucleated RBC % 0 Sodium 140 Potassium 3.6 Chloride 105 Carbon Dioxide 29.0 Anion Gap 6 BUN 17 Creatinine 1.19 H Estim Creat Clear Calc 36.91 Est GFR (MDRD) Af Amer 58 L Est GFR (MDRD) Non-Af 48 L BUN/Creatinine Ratio 14.3 Glucose 194 H Calcium 9.2 Total Bilirubin 0.50 Direct Bilirubin 0.09 AST 21 ALT 23 Alkaline Phosphatase 72 Troponin I High Sens 10 Total Protein 7.6 Albumin 3.6 Globulin 4.0 Lipase 588 H Radiography Diagnostic Testing: Clinical Impression(s) from Imaging Studies Chest/Abdomen/Pelvis CTA 10/19/22 15:57 IMPRESSION: 3.5 cm infrarenal abdominal aortic aneurysm with postsurgical changes status post aortobiiliac graft placement. No evidence of rupture. Small focal area of omental infarction anterior to the aneurysm. Recommend correlation with any prior outside CT films. Large hiatal hernia, increased in size and extent when compared to most recent prior chest CT on 12/05/2018. This is the most likely cause of patient''s symptoms. 7 mm solid pulmonary nodule in the periphery of the lingula. Per Fleischner criteria, recommend follow-up low-dose chest CT without contrast in 12 months. Fatty liver. Electronically Signed: Eliud Lu MD at 18:40 EST , EKG Initial EKG: Attestation: I personally reviewed and interpreted this EKG as follows: Interpretation: Sinus Rhythm (Sinus at 62 with nonspecific lateral T wave changes. No prior studies available for comparison.) Treatment and Re-Evaluation Narrative: Repeat evaluation patient resting comfortably. CBC reveals normal white count. Hemoglobin 12.2. Chemistry studies unremarkable. Glucose is elevated at 194. LFTs normal. Lipase is elevated at 588. Troponin is normal at 10. EKG reveals no acute ischemia. CTA of the chest, abdomen, and pelvis reveals a 3.5 cm infrarenal abdominal aortic aneurysm with postsurgical changes and graft placement. No evidence of rupture. This is compared to the most recent CT I can find from May 2021 at which time the aneurysm was measuring 5.7 x 5.0 cm. There is an area of omental infarct just anterior to the aneurysm. Patient has a large hiatal hernia that is increased in size when compared to prior CT from 2019. Although patient's lipase is slightly elevated there is no evidence of inflammation of the pancreas on imaging. Test results were discussed with the patient. I will write her for Reglan to help increase transit time through her stomach. We discussed using small, frequent meals. She be referred to GI for follow-up as needed. Discharge Plan Triage Chief Complaint: Abd Pain ED Provider: Arely Abebe Dx/Rx/DC Orders Clinical Impression: Hiatal hernia Instructions: ED Hiatal Hernia Prescriptions: New metoclopramide HCl [Reglan] 10 mg tablet 10 mg PO Q6H PRN (Reason: nausea and vomiting) Qty: 20 0RF No Action carvedilol 12.5 mg tablet 12.5 mg PO BID nitroglycerin 0.4 mg tablet, sublingual 0.4 mg SUBLINGUAL Q5-15M cholecalciferol (vitamin D3) [Vitamin D3] 400 unit tablet 400 unit PO DAILY Adult 50 Plus Probiotic 4 billion cell capsule 4,000 mmu cells PO DAILY Rx Instructions: administer with a meal rosuvastatin 10 mg tablet 10 mg PO QHS Qty: 90 3RF candesartan 8 mg tablet 8 mg PO DAILY Qty: 90 3RF aspirin 81 MG tablet,chewable 81 mg PO DAILY omega-3 fatty acids-fish oil 1 EACH capsule 1 ea PO DAILY methylcellulose (laxative) 500 MG tablet 1,000 mg PO DAILY Primary Care Provider: Fabrizio Callahan Referrals: Fabrizio Callahan MD [Primary Care Provider] - Disposition Disposition: Home, Self Care
[2022-10-19 16:05] LABS: Absolute Lymphocyte Count 0.88 X10^3/uL (0.83-4.51); Absolute Neutrophil Count 6.9 X10^3/uL (2.0-7.7); Basophil# 0.07 X10^3/uL; Basophil% 0.8 % (0-1); Eosinophil# 0.26 X10^3/uL; Eosinophils% 2.9 % (0-5); Hematocrit 36.3 % (37-47); Hemoglobin 12.2 g/dL (12.0-15.0); Lymphocyte # 0.88 X10^3/ul (0.83-4.51); Mean Corp Hgb Conc 33.6 g/dL (32-36); Mean Corpuscular Volume 92.1 fL (81-99); Mean Platelet Vol. 9.4 fl (6.2-12.0); Monocyte# 0.75 X10^3/uL; Monocyte% 8.5 % (0-10); NRBC Flagged by Analyzer 0 % (0-5); Neutrophil # 6.85 X10^3/uL (2.7-7.7); Neutrophil % 77.6 % (47-70); Platelet Count 194 K/mm3 (150-450); RBC Distribution Width CV 12.8 % (11.6-14.6); RBC Distribution Width SD 43.4 fl (35.1-43.9); Red Blood Count 3.94 M/mm3 (4.2-5.4); White Blood Count 8.8 K/mm3 (4.4-11.0)
[2022-10-19 16:25] LABS: AST(SGOT) 21 U/L (15-37); Alanine Aminotransfer ALT/SGPT 23 U/L (13-56); Albumin, Serum 3.6 g/dL (3.2-5.0); Alkaline Phosphatase 72 U/L (45-117); Anion Gap 6 (5-15); BUN 17 mg/dL (7-18); BUN/Creat Ratio 14.3 RATIO (10-20); Bilirubin, Direct 0.09 mg/dL (0.00-0.30); Calcium,Total 9.2 mg/dL (8.5-10.1); Chloride 105 mmol/L (98-107); Creatinine, Serum 1.19 mg/dL (0.55-1.02); EST Glomerular Filtration Rate 48 mL/min (>60); Est Glom Filt Rate - Afr Amer 58 mL/min (>60); Estimated Creatinine Clearance 36.91 ml/min; Glucose 194 mg/dL (74-106); Lipase 588 U/L (73-393); Potassium 3.6 mmol/L (3.5-5.1); Protein, Total 7.6 g/dL (6.4-8.2); Sodium Level 140 mmol/L (136-145); Troponin-I HS 10 pg/mL (3.0-54.0)
[2022-10-19 18:37] VITALS: BP 157/82
[2022-10-19 19:06] VITALS: BP 169/98; PULSE 81; RESP 18; O2SAT 96
[2022-10-19 19:56] VITALS: PULSE 80; RESP 15; O2SAT 99
--- NOTE | 2022-10-28 13:41 | CASEMGMT ---
INCIDENTAL FINDINGS F/U -Per [employer] report 10/19/22: CT/CTA Chst, Abd, Pel W and/or WO IMPRESSION: 3.5 cm infrarenal abdominal aortic aneurysm with postsurgical changes status post aortobiiliac graft placement. No evidence of rupture.? Small focal area of omental infarction anterior to the aneurysm. Recommend correlation with any prior outside CT films. Large hiatal hernia, increased in size and extent when compared to most recent prior chest CT on 12/05/2018. This is the most likely cause of patient''s symptoms. 7 mm solid pulmonary nodule in the periphery of the lingula. Per Fleischner criteria, recommend follow-up low-dose chest CT without contrast in 12 months. Fatty liver. -TC to pt regarding the above. Pt stated she saw her PCP yesterday. Pt stated she was not aware that a CT would need completed in 12 mths until she spoke with her PCP yesterday. Pt is now aware as PCP advised. Pt and PCP will schedule the scan closer to the time. No needs at this time.
== END 2022-10-19 19:56 | disposition home or self-care (01) ==
PROVIDERS: Emergency Provider Emergency Medicine; PCP Family Medicine; Visit Provider Emergency Medicine
DX: K44.9 Diaphragmatic hernia without obstruction or gangrene (principal); I11.0 Hypertensive heart disease with heart failure; I50.42 Chronic combined systolic (congestive) and diastolic (congestive) heart failure; I25.5 Ischemic cardiomyopathy; I25.10 Atherosclerotic heart disease of native coronary artery without angina pectoris; I25.2 Old myocardial infarction; Z95.5 Presence of coronary angioplasty implant and graft; Z79.82 Long term (current) use of aspirin; Z79.899 Other long term (current) drug therapy
CPT/HCPCS: 71275; 74174; 80048; 80076; 83690; 84484; 85025; 93005; 96361; 96374; 99284; J7030; Q9967; A4216; J2405

== ENCOUNTER 2023-03-09 22:14 | Emergency (ER) | payer MEDICARE, OTHER, SELFPAY ==
[2023-03-09 22:16] VITALS: BP 195/109; PULSE 77; RESP 16; TEMP 35.8; O2SAT 97
--- NOTE | 2023-03-09 22:45 | EX.ED.DYSGE1 ---
HPI History of Present Illness Chief Complaint: GI Bleed Narrative Narrative: 72-year-old female here with concern for abdominal pain, notes vomiting dark emesis. States she has a hernia repair scheduled in March. She further states symptoms started over the last 24 hours. Denies melena or hematochezia in her bowel movements. No history abdominal surgery. Denies any fever or chills. Denies any urinary complaints. 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 Paroxysmal supraventricular tachycardia Peripheral vascular disease ST elevation (STEMI) myocardial infarction involving left circumflex coronary artery (05/2008) 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) Home Medications aspirin 81 mg chewable tablet 81 mg PO DAILY HEART HEALTH 02/26/14 [History Last Taken 12/28/18] omega-3 fatty acids-fish oil 340 mg-1,000 mg capsule 1 ea PO DAILY SUPPLEMENT 12/28/18 [History Last Taken 12/28/18] carvedilol 12.5 mg tablet 12.5 mg PO BID 07/24/19 [History Last Taken Unknown] cholecalciferol (vitamin D3) 10 mcg (400 unit) tablet (Vitamin D3) 400 unit PO DAILY 07/24/19 [History Last Taken Unknown] nitroglycerin 0.4 mg sublingual tablet 0.4 mg sublingual Q5-15M 07/24/19 [History Last Taken Unknown] rosuvastatin 10 mg tablet 10 mg PO QHS CHOLESTEROL LOWERING #90 tabs 07/01/22 [Rx Last Taken Unknown] metoclopramide HCl 10 mg tablet (Reglan) 10 mg PO Q6H PRN nausea and vomiting #10 tabs 10/19/22 [Rx Last Taken Unknown] candesartan 16 mg tablet 16 mg PO DAILY 12/28/22 [History Last Taken Unknown] amoxicillin 875 mg-potassium clavulanate 125 mg tablet 1 tab PO Q12H #14 tabs 03/10/23 [Rx Last Taken Unknown] ondansetron 4 mg disintegrating tablet 4 mg PO Q8H PRN nausea and vomiting 5 days #15 tabs 03/10/23 [Rx Last Taken Unknown] Allergy/AdvReac Type Severity Reaction Status Date / Time erythromycin base Allergy Other Verified 03/09/23 22:15 [From Staticin] ethyl alcohol [From Staticin] Allergy Other Verified 03/09/23 22:15 Sulfa (Sulfonamide Allergy Other Verified 03/09/23 22:15 Antibiotics) lisinopril AdvReac cough Verified 03/09/23 22:15 niacin AdvReac GI Upset Verified 03/09/23 22:15 Nlodokf-IMG-LnF Reductase AdvReac GI Upset Verified 03/09/23 22:15 Inhibitor [Itbezmv-Cfj-Szi Reductase Inhibitor] Family History Mother CAD (coronary artery disease) Heart disease Myocardial infarction Hypertension Diabetes Father AAA from rupture Hypertension Sister Hypertension Brother Heart disease CAD (coronary artery disease) CABG age 78 Hypertension Surgical History H/O endovascular stent graft for abdominal aortic aneurysm (04/25/19) History of coronary artery stent placement (05/2008) History of left heart catheterization (01/01/19) Social History Smoking Status: Never smoker ROS ROS ED ROS Narrative Constitutional: Denies fever HEENT: Denies sore throat Neck: Denies neck pain Cardiovascular: Denies chest pain, syncope Respiratory: Denies shortness of breath GI: Endorses abdominal pain nausea and vomiting : Denies changes in urinary habits Musculoskeletal: Denies muscle or joint pain Neurologic: Denies numbness weakness or loss of sensation Skin denies rash EXAM Physical Exam Narrative Exam Narrative: Nursing triage notes reviewed, Vital signs reviewed Constitutional: please see mdm HENT: MMM Eyes: Pupils equal round and reactive to light, Extraocular muscles intact Neck: No stridor, no JVD, full neck ROM Lungs: Clear to auscultation, No wheezing or rales. No increased work of breathing, no conversational dyspnea, no accessory muscle use, no nasal flaring. No respiratory distress noted Heart: Regular rate and rhythm, No murmurs, No rubs and No gallops, 2+ distal pulses (radial, femoral, posterior tibial) in all extremities Abdomen: Soft, diffuse tenderness but no rigidity, rebound or guarding, no obvious peritoneal signs, no palpable pulsatile abdominal masses, no auscultated abdominal bruit. Midline surgical scar clean dry intact : No CVAT Extremities: No edema Neuro: No focal neurological deficits, cranial nerves II through XII intact, 5/5 strength in all extremities. Intact sensation to light touch in all extremities, 2+ reflexes bilateral patella dens. Normal gait. No ataxia. Skin: No rash or lesions noted Const Vital Signs: 03/09/23 22:16 Temperature 96.4 F L Temperature Source Temporal Pulse Rate 77 Respiratory Rate 16 Blood Pressure 195/109 H Blood Pressure Mean 137 Pulse Ox 97 Oxygen Delivery Method Room Air MDM MDM MDM Narrative Medical decision making narrative: Chief Complaint: Abdominal pain, nausea vomiting External records reviewed: I considered the following differential diagnosis: GI bleed, gastritis, perforation, obstruction, AAA, surgical abdominal pathology, pancreatitis, anemia Patient was hypertensive initially otherwise hemodynamically stable, afebrile. Abdominal exam with diffuse tenderness but no obvious peritoneal signs. Obtained a CT of the abdomen pelvis which showed NO evidence of endoleak or AAA. CT scan further showed evidence of enteritis. I will treat with oral antibiotics. Labs without leukocytosis, anion gap, PATRICIA, no evidence of myocardial ischemia, no evidence of endorgan hypoperfusion to suggest incarcerated hernia. Lipase mildly elevated concerning for mild inflammation but not consistent with pancreatitis. The patient's presentation is likely secondary to enteritis. Patient was specifically concerned about her hernia being incarcerated and/or twisted. I did have a discussion with radiologist Dr. Singh. We reviewed the image. There is no signs of incarceration, twisting or significant change from her September CT scan. Will give Augmentin for prophylactic antimicrobial therapy. Will give Zofran for nausea control. Instructed the patient follow-up with her surgeon for outpatient re-evaluation and further treatment. Factors affecting care: History of hyperlipidemia, hypertension, aortic aneurysm, ischemic cardiomyopathy, STEMI Social determinants of health: Elderly, never smoker History obtained from others: Shared decision making: I will have a discussion with the patient and or visitors regarding risk/benefits of further testing or admission. They will be made aware of of the risk/benefits inherent in this decision they will be given the opportunity to voice understanding. Consults: Radiology History & Record Review Discussion w/independent historian: Family Lab Data Attestation: I reviewed the patient's lab results. Lab results narrative: EKG shows normal sinus rhythm, left axis deviation, normal intervals, no STEMI, no arrhythmia, no atrial fibrillation CBC without leukocytosis, severe anemia, no thrombocytopenia. BMP without evidence of significant electrolyte abnormalities, no anion gap to suggest endorgan hypoperfusion, no acute kidney injury. LFTs show no evidence of hepatobiliary pathology. UA without evidence of infection Lactate is wnl indicating no end-organ hypoperfusion and/or hypoxia. Labs: Laboratory Results - last 24 hr 03/09/23 03/09/23 03/09/23 23:00 23:00 23:00 WBC 8.6 RBC 4.45 Hgb 13.4 Hct 40.2 MCV 90.3 MCH 30.1 MCHC 33.3 RDW Std Deviation 43.4 RDW Coeff of Marielos 13.2 Plt Count 167 MPV 9.9 Immature Gran % (Auto) 1.600 H Neut % (Auto) 82.6 H Lymph % (Auto) 10.1 L [place] % (Auto) 4.5 Eos % (Auto) 0.6 Baso % (Auto) 0.6 Absolute Neuts (auto) 7.1 Absolute Lymphs (auto) 0.87 Nucleated RBC % 0 Sodium 140 Potassium 3.7 Chloride 103 Carbon Dioxide 30.0 Anion Gap 7 BUN 19 H Creatinine 1.11 H Est GFR (MDRD) Af Amer 63 Est GFR (MDRD) Non-Af 52 L BUN/Creatinine Ratio 17.1 Glucose 144 H Lactic Acid Calcium 9.6 Total Bilirubin 0.80 AST 41 H ALT 49 Alkaline Phosphatase 90 Troponin I High Sens 12 Total Protein 7.8 Albumin 4.0 Globulin 3.8 Albumin/Globulin Ratio 1.1 Lipase 327 H Urine Color Urine Clarity Urine pH Ur Specific [place] U Specif Grav (Refrac) Urine Protein Urine Glucose (UA) Urine Ketones Urine Occult Blood Urine Nitrite Urine Bilirubin Urine Urobilinogen Ur Leukocyte Esterase Urine RBC Urine WBC Ur Squamous Epith Cells Ur Transition Epith Cell Ur Renal Epithelial Cell Calcium Oxalate Crystal Uric Acid Crystals Triple Phos Crystals Other Crystals Amorphous Sediment Urine Bacteria Hyaline Casts Fine Granular Casts Coarse Granular Casts Waxy Casts RBC Casts WBC Casts Urine Mucus Urine Trichomonas Urine Yeast 03/09/23 03/09/23 03/09/23 23:17 23:46 23:46 WBC RBC Hgb Hct MCV MCH MCHC RDW Std Deviation RDW Coeff of Marielos Plt Count MPV Immature Gran % (Auto) Neut % (Auto) Lymph % (Auto) [place] % (Auto) Eos % (Auto) Baso % (Auto) Absolute Neuts (auto) Absolute Lymphs (auto) Nucleated RBC % Sodium Potassium Chloride Carbon Dioxide Anion Gap BUN Creatinine Est GFR (MDRD) Af Amer Est GFR (MDRD) Non-Af BUN/Creatinine Ratio Glucose Lactic Acid 1.5 Calcium Total Bilirubin AST ALT Alkaline Phosphatase Troponin I High Sens Total Protein Albumin Globulin Albumin/Globulin Ratio Lipase Urine Color Yellow Cancelled Urine Clarity Cloudy Cancelled Urine pH 8.0 Cancelled Ur Specific [place] 1.015 Cancelled U Specif Grav (Refrac) Cancelled Urine Protein 100 H Cancelled Urine Glucose (UA) Normal Cancelled Urine Ketones 15 H Cancelled Urine Occult Blood 250 H Cancelled Urine Nitrite Negative Cancelled Urine Bilirubin Negative Cancelled Urine Urobilinogen Normal Cancelled Ur Leukocyte Esterase 25 H Cancelled Urine RBC 25-50 SEEN Cancelled Urine WBC 5-10 SEEN Cancelled Ur Squamous Epith Cells 0-5 SEEN Cancelled Ur Transition Epith Cell Cancelled Ur Renal Epithelial Cell Cancelled Calcium Oxalate Crystal Cancelled Uric Acid Crystals Cancelled Triple Phos Crystals Cancelled Other Crystals Cancelled Amorphous Sediment 3+ Cancelled Urine Bacteria 1+ Cancelled Hyaline Casts Cancelled Fine Granular Casts Cancelled Coarse Granular Casts Cancelled Waxy Casts Cancelled RBC Casts Cancelled WBC Casts Cancelled Urine Mucus 0 SEEN Cancelled Urine Trichomonas Cancelled Urine Yeast Cancelled Radiography Diagnostic Testing: Clinical Impression(s) from Imaging Studies Abdomen/Pelvis CTA 03/10/23 23:15 IMPRESSION: 1. Nodular irregular densities in the lingula and adjacent anterior left lower lobe, more prominent than the prior CT. There is adjacent atelectasis and therefore this may represent worsening pleural thickening and/or scarring, however recommend short interval follow-up CT of the chest to exclude enlarging pulmonary nodules. 2. Stable 3.5 cm infrarenal abdominal aortic aneurysm and stable aortobiiliac graft with no evidence of dissection or a leak. 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 3. Mild thickening of a segment of small bowel loops in the right lower quadrant and mild mesenteric stranding. Findings may represent mild localized enteritis. 4. Large hiatal hernia. Electronically Signed: Nghia Singh DO at 0:30 EDT , Management Discussion w/another healthcare provider: Radiologist Treatment and Re-Evaluation :: Repeat abdominal exam remained benign. The patient was tolerating p.o. He is appropriate discharge home. Discharge Plan Triage Chief Complaint: GI Bleed ED Provider: Mario Martinez Dx/Rx/DC Orders Clinical Impression: Enteritis, Nausea & vomiting, Esophageal hiatal hernia Instructions: ED Vomiting (Adult), ED Hiatal Hernia Prescriptions: New ondansetron 4 mg tablet,disintegrating 4 mg PO Q8H PRN (Reason: nausea and vomiting) 5 Days Qty: 15 0RF amoxicillin-pot clavulanate 875-125 mg tablet 1 tab PO Q12H Qty: 14 0RF No Action carvedilol 12.5 mg tablet 12.5 mg PO BID nitroglycerin 0.4 mg tablet, sublingual 0.4 mg SUBLINGUAL Q5-15M cholecalciferol (vitamin D3) [Vitamin D3] 400 unit tablet 400 unit PO DAILY rosuvastatin 10 mg tablet 10 mg PO QHS Qty: 90 3RF candesartan 16 mg tablet 16 mg PO DAILY aspirin 81 MG tablet,chewable 81 mg PO DAILY omega-3 fatty acids-fish oil 1 EACH capsule 1 ea PO DAILY metoclopramide HCl [Reglan] 10 mg tablet 10 mg PO Q6H PRN (Reason: nausea and vomiting) Qty: 10 0RF Primary Care Provider: Fabrizio Callahan Referrals: Fabrizio Callahan MD [Primary Care Provider] - Activity Restrictions/Additional Instructions: Thank you for trusting us with your care today! Please take Zofran as needed for nausea and vomiting. Please take Tylenol (2 pills, 650 mg), ibuprofen (2 pills, 400 mg) every 6 hours as needed for pain and fever control. Please take antibiotics until course complete. Please return if he cannot tolerate antibiotics mouth, he cannot tolerate food or water by mouth. Please return if you do not have bowel movements for greater than 7 days. Please follow-up with your surgeon for outpatient evaluation and possible expedited surgical intervention. Please return to the emergency department if your symptoms change or worsen. Please follow with your primary care physician for further outpatient evaluation and management. Disposition Disposition: Home, Self Care
--- NOTE | 2023-03-09 23:15 | EKG12_ITS ---
Test Reason : DYSRHYTHMIA Blood Pressure : / mmHG Vent. 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
[2023-03-09 23:18] LABS: Absolute Lymphocyte Count 0.87 X10^3/uL (0.83-4.51); Absolute Neutrophil Count 7.1 X10^3/uL (2.0-7.7); Basophil# 0.05 X10^3/uL; Basophil% 0.6 % (0-1); Eosinophil# 0.05 X10^3/uL; Eosinophils% 0.6 % (0-5); Hematocrit 40.2 % (37-47); Hemoglobin 13.4 g/dL (12.0-15.0); Lymphocyte # 0.87 X10^3/ul (0.83-4.51); Lymphocyte % 10.1 % (19-41); Mean Corp Hgb Conc 33.3 g/dL (32-36); Mean Corpuscular Hgb 30.1 pg (27.0-32.0); Mean Corpuscular Volume 90.3 fL (81-99); Mean Platelet Vol. 9.9 fl (6.2-12.0); Monocyte# 0.39 X10^3/uL; Monocyte% 4.5 % (0-10); NRBC Flagged by Analyzer 0 % (0-5); Neutrophil # 7.09 X10^3/uL (2.7-7.7); Neutrophil % 82.6 % (47-70); Platelet Count 167 K/mm3 (150-450); RBC Distribution Width CV 13.2 % (11.6-14.6); RBC Distribution Width SD 43.4 fl (35.1-43.9); Red Blood Count 4.45 M/mm3 (4.2-5.4); White Blood Count 8.6 K/mm3 (4.4-11.0)
[2023-03-09 23:25] LABS: ALB/GLOB Ratio 1.1 RATIO (0.9-2.4); AST(SGOT) 41 U/L (15-37); Alanine Aminotransfer ALT/SGPT 49 U/L (13-56); Alkaline Phosphatase 90 U/L (45-117); Anion Gap 7 (5-15); BUN 19 mg/dL (7-18); BUN/Creat Ratio 17.1 RATIO (10-20); Calcium,Total 9.6 mg/dL (8.5-10.1); Chloride 103 mmol/L (98-107); Creatinine, Serum 1.11 mg/dL (0.55-1.02); EST Glomerular Filtration Rate 52 mL/min (>60); Est Glom Filt Rate - Afr Amer 63 mL/min (>60); Globulin 3.8 g/dL (2.2-4.2); Glucose 144 mg/dL (74-106); Potassium 3.7 mmol/L (3.5-5.1); Protein, Total 7.8 g/dL (6.4-8.2); Sodium Level 140 mmol/L (136-145)
[2023-03-09] MEDS: 0.9% Normal Saline 1,000 ML 1000 ML IV (23:39)
[2023-03-09] MEDS: HYDROmorphone 1 MG/ML Syringe 0.25 MG IV (23:39)
[2023-03-09] MEDS: Ondansetron 4 MG/2 ML Vial IV (23:40)
[2023-03-09 23:41] VITALS: BMI 23.7
[2023-03-09 23:51] LABS: Mucous, Urine 0 SEEN /hpf (<or=2+)
[2023-03-09 23:56] LABS: Glucose, Dipstick Normal (Normal); Ketone-Dipstick 15 mg/dl (Negative); Leukocyte Esterase-Dipstick 25 /ul (Negative); Nitrite-Dipstick Negative (Negative); Occult Blood-Urine 250 /ul (Negative); Protein-Dipstick 100 mg/dl (Negative); Specific Gravity, Urine 1.015 (1.002-1.030); Urine Bilirubin Dipstick Negative (Negative); Urine Clarity Cloudy (Clear); Urine Urobilinogen Normal (Normal)
[2023-03-09 23:57] LABS: Color, Urine Yellow (Yellow)
[2023-03-10 00:06] LABS: Amorphous Sediment 3+; Bacteria 1+ /hpf (None Seen); Red Blood Cells-Urine 25-50 SEEN /hpf (0-5); Squamous Epithelial Cells - UA 0-5 SEEN /hpf (5-10); White Blood Cells 5-10 SEEN /hpf (0-5)
[2023-03-10 00:24] LABS: Lipase 327 U/L (13-75); Troponin-I HS 12 pg/mL (3.0-54.0)
[2023-03-10 00:24] LABS: Lactic Acid 1.5 mmol/L (0.4-1.9)
[2023-03-10] MEDS: Amox/Clavulanate 875 MG Tablet PO (02:02)
[2023-03-10] MEDS: Ondansetron 4 MG/2 ML Vial IV (02:13)
[2023-03-10 02:48] VITALS: BP 192/95; PULSE 68; RESP 18; O2SAT 97
--- NOTE | 2023-03-10 23:15 | CT_ITS ---
INDICATION: Abdominal pain, history of aortic graft EXAMINATION: CT ABDOMEN AND PELVIS WITH CONTRAST - CTA Abdomen and Pelvis WO/W Contrast Injection TECHNIQUE: Helically acquired images were obtained of the abdomen and pelvis with sagittal and coronal reconstructed images. Three-D reconstructed images were reviewed. Individualized dose optimization techniques were used for this CT. IV contrast dosage and agent: 100 mL of Isovue-[id number]. Oral contrast: None. COMPARISON: 10/19/2022 CT. FINDINGS: VESSELS: Stable 3.5 cm infrarenal abdominal aortic aneurysm. No dissection. Status post aortobiiliac graft. No evidence of a leak. 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 LIVER: No evidence of a mass. No intrahepatic or extrahepatic biliary duct dilation. GALLBLADDER: No calcified stones. No evidence of cholecystitis. PANCREAS: No focal solid or cystic mass. No evidence of pancreatitis. SPLEEN: Normal. ADRENAL GLANDS: Normal. KIDNEYS AND URETERS: No urinary tract stone. No hydronephrosis or hydroureter. Mild symmetric bilateral perinephric stranding. URINARY BLADDER: Unremarkable. BOWEL: No evidence of diverticulosis or diverticulitis. Appendix not identified. No evidence of bowel obstruction. Mild thickening of a segment of small bowel loops in the right lower quadrant. REPRODUCTIVE ORGANS: No evidence of a pelvic mass. PERITONEUM: Mild mesenteric stranding, more prominent in the right lower quadrant. LYMPH NODES: No pathologically enlarged mesenteric or retroperitoneal lymph nodes. ABDOMINAL WALL: No abdominal or pelvic wall hernia. BONES: No acute abnormality. Stable mild compression fractures of L3, L4 and L5. LOWER CHEST: Nodular irregular densities in the lingula and adjacent anterior left lower lobe, more prominent on the prior CT with adjacent atelectasis. Large hiatal hernia. CT/CTA Abd/Pelvis W/WO Contrast IMPRESSION: 1. Nodular irregular densities in the lingula and adjacent anterior left lower lobe, more prominent than the prior CT. There is adjacent atelectasis and therefore this may represent worsening pleural thickening and/or scarring, however recommend short interval follow-up CT of the chest to exclude enlarging pulmonary nodules. 2. Stable 3.5 cm infrarenal abdominal aortic aneurysm and stable aortobiiliac graft with no evidence of dissection or a leak. 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 3. Mild thickening of a segment of small bowel loops in the right lower quadrant and mild mesenteric stranding. Findings may represent mild localized enteritis. 4. Large hiatal hernia. Electronically Signed: Nghia Singh DO at 0:30 EDT ,
== END 2023-03-10 02:49 | disposition home or self-care (01) ==
PROVIDERS: Emergency Provider Emergency Medicine; PCP Family Medicine; Visit Provider Emergency Medicine
DX: K52.9 Noninfective gastroenteritis and colitis, unspecified (principal); I11.0 Hypertensive heart disease with heart failure; I50.42 Chronic combined systolic (congestive) and diastolic (congestive) heart failure; K44.9 Diaphragmatic hernia without obstruction or gangrene; E78.5 Hyperlipidemia, unspecified; I25.10 Atherosclerotic heart disease of native coronary artery without angina pectoris; R11.2 Nausea with vomiting, unspecified; Z79.82 Long term (current) use of aspirin; Z79.899 Other long term (current) drug therapy; I25.2 Old myocardial infarction; Z95.5 Presence of coronary angioplasty implant and graft
CPT/HCPCS: 74174; 80053; 81001; 83605; 83690; 84484; 85025; 93005; 99284; Q9967; A4216; J2405

== ENCOUNTER 2024-09-30 12:00 | Emergency (ER) | payer MEDICARE, OTHER, SELFPAY ==
[2024-09-30 12:01] VITALS: BP 212/108; PULSE 54; RESP 18; TEMP 36.6; O2SAT 98; BMI 28.8
[2024-09-30 13:00] VITALS: BP 192/93; PULSE 56; RESP 14; O2SAT 96
[2024-09-30 13:04] LABS: Absolute Lymphocyte Count 1.03 X10^3/uL (0.83-4.51); Basophil% 1.6 % (0-1); Eosinophil# 0.31 X10^3/uL; Eosinophils% 5.1 % (0-5); Hematocrit 39.4 % (37-47); Hemoglobin 13.2 g/dL (12.0-15.0); Lymphocyte # 1.03 X10^3/ul (0.83-4.51); Lymphocyte % 16.8 % (19-41); Mean Corp Hgb Conc 33.5 g/dL (32-36); Mean Corpuscular Hgb 30.6 pg (27.0-32.0); Mean Corpuscular Volume 91.2 fL (81-99); Mean Platelet Vol. 9.2 fl (6.2-12.0); Monocyte# 0.69 X10^3/uL; Monocyte% 11.3 % (0-10); NRBC Flagged by Analyzer 0 % (0-5); Neutrophil # 3.97 X10^3/uL (2.7-7.7); Neutrophil % 64.7 % (47-70); Platelet Count 191 K/mm3 (150-450); RBC Distribution Width CV 12.8 % (11.6-14.6); RBC Distribution Width SD 42.8 fl (35.1-43.9); Red Blood Count 4.32 M/mm3 (4.2-5.4); White Blood Count 6.1 K/mm3 (4.4-11.0)
[2024-09-30 13:13] LABS: Anion Gap 3 (5-15); BUN 20 mg/dL (7-18); BUN/Creat Ratio 18.3 RATIO (10-20); Calcium,Total 9.1 mg/dL (8.5-10.1); Chloride 110 mmol/L (98-107); Creatinine, Serum 1.09 mg/dL (0.55-1.02); EST Glomerular Filtration Rate 53 mL/min (>60); Est Glom Filt Rate - Afr Amer 64 mL/min (>60); Estimated Creatinine Clearance 44.57 ml/min; Glucose 107 mg/dL (74-106); Potassium 4.4 mmol/L (3.5-5.1); Sodium Level 140 mmol/L (136-145); Troponin-I HS (w/2H Reflex) 10 pg/mL (3.0-54.0)
[2024-09-30 13:24] LABS: BNP,B-Type NATRIURETIC PEPTIDE 391.1 pg/mL (0-100)
[2024-09-30 14:00] VITALS: BP 190/89; PULSE 56; RESP 14; O2SAT 96
[2024-09-30 14:00] LABS: D-Dimer Quantitative (DVT/PE) 9.09 FEU/ug/m (0.27-0.49)
[2024-09-30 14:45] LABS: Reflex Troponin-HS? (from REC) Y
[2024-09-30] MEDS: 0.9% Normal Saline (500mL Bag) 500 ML 999 ML IV (14:46)
[2024-09-30 15:00] VITALS: BP 197/97; PULSE 66; RESP 16; O2SAT 95
[2024-09-30 15:22] LABS: Troponin-I HS 10 pg/mL (3.0-54.0)
[2024-09-30] MEDS: hydrALAZINE 20 MG/ML Vial 10 MG IV (15:44)
[2024-09-30 16:00] VITALS: BP 179/81
[2024-09-30 16:10] VITALS: BP 179/81; PULSE 76; RESP 15; TEMP 36.6; O2SAT 95
== END 2024-09-30 16:23 | disposition home or self-care (01) ==
PROVIDERS: Emergency Provider Surgery; PCP Family Medicine; Referring Provider Surgery; Visit Provider Surgery
DX: R00.2 Palpitations (principal); I11.0 Hypertensive heart disease with heart failure; I50.42 Chronic combined systolic (congestive) and diastolic (congestive) heart failure; I25.10 Atherosclerotic heart disease of native coronary artery without angina pectoris; E78.5 Hyperlipidemia, unspecified; I25.2 Old myocardial infarction; Z79.82 Long term (current) use of aspirin; Z79.899 Other long term (current) drug therapy; Z95.5 Presence of coronary angioplasty implant and graft; R79.1 Abnormal coagulation profile; I71.43 Infrarenal abdominal aortic aneurysm, without rupture
CPT/HCPCS: 71045; 71275; 74174; 80048; 83735; 83880; 84443; 84484; 85025; 85379; 93005; 99284; Q9967; A4216

== ENCOUNTER → 2024-09-30 | Outpatient (CLI) | payer MEDICARE, OTHER, SELFPAY | END | disposition home or self-care (01) | LOC: CVS 16:08 | PROVIDERS: PCP Family Medicine; Referring Provider Internal Medicine Interventional Cardiology; Visit Provider Surgery | DX: R00.2 Palpitations (principal) | CPT/HCPCS: 93225; 93226 ==